=== PATIENT | female | born 1930 | race Caucasian/White ===

== ENCOUNTER 2017-04-13 23:43 | Inpatient (IN) | payer MEDICARE ==
[2017-04-14 01:02] LABS: #Eosinphils 0.1 thou/uL (0.0-0.7); #Lymphocytes 0.7 thou/uL (1.20-3.40); #Monocytes 1.3 thou/uL (0.11-0.59); #Neutrophils 10.5 thou/uL (1.40-6.50); %Basophils 0.1 % (0.0-1.0); %Eosinophils 0.5 % (0.0-10.0); %Lymphocytes 5.8 % (21.0-51.0); Hematocrit 32.6 % (36.0-47.0); Mean Platelet Volume 6.9 fL (7.4-10.4); Red Blood Cell (RBC) Count 3.16 mill/uL (4.20-5.40); White Blood Cell (WBC) Count 12.5 thou/uL (4.8-10.8)
[2017-04-14 01:19] LABS: Anion Gap 16 mmol/L (10-20); BUN (Urea Nitrogen) 59 mg/dL (9.8-20.1); Calc. Creatinine Clearance 0 mL/min (70-130); Calcium 8.5 mg/dL (7.8-10.44); Carbon Dioxide 12 mmol/L (23-31); Chloride 109 mmol/L (98-107); Estimated GFR-MDRD 15
[2017-04-14] MEDS ORDERED: MD-Gastroview 120 ML BOT ONE (01:30)
[2017-04-14] MEDS ORDERED: Ondansetron HCl/PF 4 MG/2 ML Vial IVP PRN (01:52)
--- NOTE | 2017-04-14 01:52 | PDOC.EVN ---
Event Note - Event Note Event Note: [id number] 1. Abdominal pain 2. Acidosis + ckd STAGE 3-4 3. Anemia plan: see orders
[2017-04-14] MEDS ORDERED: Sodium Bicarbonate 150 MEQ in Dextrose 5% in Water 1,000 ML IV SCH ×2 (02:00)
[2017-04-14 03:49] LABS: Band 17 % (5-11); Hematocrit 32.2 % (36.0-47.0); Mean Platelet Volume 6.6 fL (7.4-10.4); Neutrophil 73 % (42-75); Red Blood Cell (RBC) Count 3.12 mill/uL (4.20-5.40); White Blood Cell (WBC) Count 14.5 thou/uL (4.8-10.8)
[2017-04-14 04:00] LABS: Anion Gap 15 mmol/L (10-20); BUN (Urea Nitrogen) 58 mg/dL (9.8-20.1); Calc. Creatinine Clearance 0 mL/min (70-130); Calcium 8.7 mg/dL (7.8-10.44); Carbon Dioxide 13 mmol/L (23-31); Chloride 108 mmol/L (98-107); Estimated GFR-MDRD 14
--- NOTE | 2017-04-14 04:32 | HP ---
DATE OF ADMISSION: 04/14/2017 CHIEF COMPLAINT: Abdominal pain. HISTORY OF PRESENT ILLNESS: The patient is an 86-year-old female with past medical history of colon mass; lupus; chronic kidney disease, stage 3-4; anemia and hypertension; now came to the hospital [facility] of the abdominal pain. The patient started having abdominal pain 3 days back. Abdominal peyton n is all over the abdomen, constant and associated with nausea also, denies any vomiting. Pain pers isted, so she went to the PCP who recommended to come to the ER. The patient denies any chest pain, denies any trouble breathing, denies any dizziness, denies lightheadedness. Positive for bowel mov ements. The patient has colostomy. She said she did have bowel movement in the colostomy bag. Den ies any fever, denies any chills. Abdominal pain is all over the abdomen, constant, achy kind of pa in, moderate in intensity, relief with pain medication. No aggravating factors. PAST MEDICAL HISTORY: As per HPI. PAST SURGICAL HISTORY: Pacemaker, appendectomy, hysterectomy, right hemicolectomy. SOCIAL HISTORY: Denies smoking, denies alcohol, denies any drugs. FAMILY HISTORY: Positive for heart problems. MEDICATIONS: Reviewed. REVIEW OF SYSTEMS: Constitutional: Denies any fever, denies any chills. Eyes: Denies any vision problems. Ears: Denies any hearing loss. Neck: Denies any neck pain. Cardiovascular system: De nies any chest pain, denies palpitations. Respiratory system: Denies any cough, denies any sputum production. Gastrointestinal: Positive for abdominal pain. Genitourinary: Denies any dysuria. I ntegumentary: Denies any rash. Musculoskeletal: Denies any joint deformities. Cranial nervous sy stem: Denies syncope, denies lightheadedness. Psychiatric: Denies depression or anxiety. All oth er review of systems are reviewed and are negative. PHYSICAL EXAMINATION: CONSTITUTIONAL/VITAL SIGNS: At the time of H\T\P performed, blood pressure is 120/70, afebrile, res piratory rate 18, pulse ox 97%. GENERAL APPEARANCE: The patient appears comfortable. HEENT: Pupils are equal, round, and reactive to light. Anterior nares patent. Nose normal. Ears normal. Teeth intact. Tongue is moist. NECK: Supple. No JVD. CARDIOVASCULAR: S1, S2 present. Regular rate and rhythm, no murmurs, no rubs, no gallops. RESPIRATORY SYSTEM: No wheezing, no rhonchi. Breath sounds bilaterally. GASTROINTESTINAL: Abdomen, old healed scar present. Positive for colostomy bag. Nontender to palp ate. Positive for bowel sounds. No guarding. MUSCULOSKELETAL: No edema. CRANIAL NERVE SYSTEM: Awake, follows commands. Speech is clear. PSYCHIATRIC: Mood is appropriate at this time. LABORATORY DATA: At the time of H\T\P performed, sodium 132, potassium 4.6, chloride 109, CO2 of 12 , BUN 59, creatinine 3. CBC showed white count 12.5, hemoglobin 7.4, platelet count is 328. CT abd omen done in the outside ER showed interval development of marked distention and wall thickening and inflammatory changes seen in left transverse colon. ASSESSMENT AND PLAN: The patient is an 86-year-old female. 1. Abdominal pain plus positive small-bowel obstruction/colon obstruction. Plan to consult General Surgery to evaluate the patient and also plan to consult GI to evaluate the patient. Plan to keep patient n.p.o. Plan to start patient on IV antibiotics and plan to start patient on IV fluids also. 2. Chronic kidney disease, stage 3-4 plus metabolic acidosis. We will start the patient on bicarbo katie drip. We will check serial lactate levels. We will consult Nephrology to evaluate the patient also. We will monitor the patient closely. 3. Pain, p.r.n. pain meds. Monitor respiratory status. 4. History of lupus, stable at this time. 5. Anemia. Hemoglobin is stable. Continue current treatment. Repeat CBC with diff in a.m. The case was discussed in detail with the patient. Patient is FULL CODE.
[2017-04-14] MEDS: metroNIDAZOLE 500 MG in Premix Bag 1 BAG IVPB SCH ×3 (05:16→22:43)
[2017-04-14] MEDS: Famotidine/PF 20 mg/2ml Vial SLOW IVP SCH (08:24)
[2017-04-14] MEDS: Heparin 5,000 UNITS/ML VIAL SC SCH ×3 (08:24→20:54)
[2017-04-14] MEDS ORDERED: Famotidine/PF 20 mg/2ml Vial SLOW IVP SCH (09:00)
[2017-04-14] MEDS ORDERED: Ciprofloxacin Lactate/D5W 200 MG in Premix Bag 1 BAG IVPB SCH (09:00)
--- NOTE | 2017-04-14 12:28 | PDOC.EVN ---
Event Note - Event Note Event Note: Chart reviewed. Pt seen. Denies abdo pain or nausea. Will follow.
--- NOTE | 2017-04-14 17:25 | RAD ---
SMALL BOWEL STUDY 04/14/17 INDICATION: Dilated stool filled small bowel on CT from [place]. COMPARISON: None. FINDINGS: The bowel gas pattern is nonobstructed. Subsequent images obtained after gastrografin administration PO demonstrates migration of gastrografin contrast through the small bowel to a right lower quadran t ileostomy by two hours. No small bowel obstruction is evident. There is scattered degenerative and osteoarthritic change. There is scattered vascular calcifications. There is diffuse osteopenia. IMPRESSION: 1. No small bowel obstruction demonstrated. 2. Contrast migration through the small bowel to the level of the right lower quadrant ostomy b y two hours. POS: UTE
--- NOTE | 2017-04-14 18:14 | PDOC.EVN ---
Event Note - Event Note Event Note: Pt had contrast for gastrografin study, then vomited. Developed rapid heart rate. Vital signs reviewed. maintaining good blood pressure, but tachycardic. S1, S2, tachy, rebgular. Lungs CTA. Tele monitor: vish mayes/esther. CXR: no infiltrates Starting antibiotics for possible aspiration. Consulting cardiology re: vish mayes/estehr. Monitor on telemetry.
--- NOTE | 2017-04-14 18:26 | RAD ---
AP VIEW OF THE CHEST: 04/14/17 INDICATION: Atrial flutter. COMPARISON: Prior exam dated 12/31/08. FINDINGS: There is mild left basilar atelectasis. There is suggestion of small left pleural effusion. There is mild pulmonary vascular congestion. No pneumothorax is evident. There is enteric contrast within th e stomach. There is diffuse osteopenia. IMPRESSION: Findings suggesting mild CHF. Continued followup is recommended. POS: JUANI
--- NOTE | 2017-04-14 19:32 | CON ---
DATE OF CONSULTATION: 04/14/2017 CHIEF COMPLAINT: Abdominal pain. HISTORY OF PRESENT ILLNESS: Ms. Oliveira is an 86-year-old woman who had gradual onset of sharp left low er quadrant abdominal pain, starting Sunday, which was 3 days ago. The pain is worse when she mo ves, gets up, or presses on her abdomen. Her pain has progressed that she went on to the emergency room in [place]. A CT scan was performed that showed inflammatory changes in the colon versus small bowel with some bowel distention and she was transferred here for further care. She has had no nasreen sea or vomiting. She has had stool output into her ileostomy and air. 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 She has a long Obed's pouch. She has had no blood in the stool. She has lost 15 pounds over the last several months. She has been able to eat over these last few days and keep her food down. PAST MEDICAL HISTORY: She was admitted to the hospital in [place] recently with urinary tract infec tion; acute renal failure, she was considered for hemodialysis at that point; lupus; hypertension. PAST SURGICAL HISTORY: Appendectomy, hysterectomy, right hemicolectomy, pacemaker placement. FAMILY HISTORY: Positive for colon cancer in her father at age 52. SOCIAL HISTORY: She quit smoking years ago. She quit alcohol years ago as well, but only drinks so cially prior to that. No drugs. ALLERGIES: TRAZODONE. HOME MEDICATIONS: Tylenol, amlodipine, lisinopril, omeprazole. REVIEW OF SYSTEMS: Negative x10 systems reviewed except as stated in the history of present illness . CURRENT INPATIENT MEDICATIONS: Ciprofloxacin, famotidine, subcutaneous heparin, metronidazole. PHYSICAL EXAMINATION: VITAL SIGNS: Temperature 97.7, pulse 89, blood pressure 132/61, oxygen saturation is 93% on 2 liter s. GENERAL: She is in no acute distress. She is awake and alert. HEENT: Eyes have no scleral icterus. Oropharynx is clear, without lesions. NECK: No cervical or supraclavicular lymphadenopathy. LUNGS: Clear to auscultation bilaterally. HEART: Regular rate and rhythm without murmur. ABDOMEN: Soft and nontender in the right abdomen and right upper quadrant. She has tenderness with voluntary guarding in the left lower quadrant to left upper quadrant. Bowel sounds are present. S he does have a small amount of stool in her ileostomy bag. EXTREMITIES: No lower extremities edema. LABORATORY DATA: Creatinine 3.07 with a BUN of 58. White blood cell count 14.5, hemoglobin 10.3, p latelets 318. IMPRESSION: 1. Left lower quadrant abdominal pain. CT scan showing possible inflammatory changes around the tr ansverse part of the colon of the Mckinney's pouch. Possibly this is actually small bowel with some retained stool and dilation of the bowel above that. She could have ischemic colitis of the Mckinney 's pouch. Diverticulitis in this area is possible. Given the 15 pound weight loss and the family h istory of colon cancer, a colon mass is possible. 2. Chronic renal disease. 3. Weight loss. 4. Overall, poor functional status. She is quite frail. RECOMMENDATIONS: 1. Antibiotics with ciprofloxacin and metronidazole. 2. Discuss with Dr. Horton. PLAN: 1. Small bowel follow through to evaluate if this is more of a distal small bowel process with sarah ined stool and bowel dilation. This may have a therapeutic effect as well to clear if there is an i mpacted stool in the lower and in the ileum. 2. The small bowel follow through is negative, then consideration for colonoscopy would be given to evaluate for ischemic colitis or neoplastic process.
--- NOTE | 2017-04-14 19:43 | CON ---
DATE OF CONSULTATION: 04/14/2017 REASON FOR CONSULTATION: Atrial fibrillation, rapid ventricular response. HISTORY OF PRESENT ILLNESS: Ms. Oliveira is a very pleasant 86-year-old white female who comes to the [facility] for abdominal pain. She is being currently worked up for small-bowel obstruction and she was downstairs getting a small bowel follow through and she had an episode of a bout of vomiting and so on after that she developed a heart rate in the 150s. Telemetry would suggest either atrial fibrill ation or flutter. EKG suggest more atrial fibrillation. So Cardiology is being consulted for this. She has a pacemaker in place. This was originally placed by Dr. 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 She eventually has had it replaced in June of last year. Currently, Ms. Oliveira denies any chest pain, tightness, pressure. Her breathing is at baseline. Denie s any other issues. PAST MEDICAL HISTORY: 1. Hypertension. 2. History of an [place] in the past. 3. Lupus. 4. Mitral valve prolapse. PAST SURGICAL HISTORY: 1. Cardiac arrest status post pacemaker placement as above. 2. Bowel resection with ileostomy in the past. PAST SURGICAL HISTORY: 1. Appendectomy 2. Hysterectomy. 3. Bilateral carpal tunnel release. 4. L3-L2 hemilaminectomy. 5. Laser eye surgery. 6. Bowel resection with ileostomy. 7. Pacemaker insertion as well. ALLERGIES: SULFA DRUGS and TRAZODONE. OUTPATIENT MEDICATIONS: Include, 1. Cozaar 25 mg a day. 2. Coreg 25 mg b.i.d. 3. Amlodipine 10 mg a day. FAMILY HISTORY: Father of colon cancer. Mother of a cerebral aneurysm. Three sister wit h breast cancer and hypertension. SOCIAL HISTORY: Former smoker. No alcohol or drug use. REVIEW OF SYSTEMS: Twelve point review of systems was done and is all negative unless stated in the history of present illness. PHYSICAL EXAMINATION: VITAL SIGNS: Temperature 98.2, pulse 130, respiratory rate 18, satting 91% on 2 L, blood pressure 1 31/61. GENERAL: Awake, alert, is oriented x3, in no distress. HEENT: Normocephalic, atraumatic. NECK: Supple. LUNGS: Reduced breath sounds. CARDIOVASCULAR: S1, S2. Heart rate in the 150s right now, mildly irregular. ABDOMEN: Diminished bowel sounds. EXTREMITIES: No edema. SKIN: Warm and dry. LABORATORY WORK: Reviewed. White count of 14, hemoglobin of 10, hematocrit 32, platelet count 318, 000. Chemistries were also reviewed. Creatinine is high at 3. Normal potassium. EKGs were reviewed, AFib, RVR. Chest x-ray was reviewed and mild CHF. Small bowel x-ray was reviewed. ASSESSMENT AND PLAN: 1. Atrial fibrillation with rapid ventricular response: We will start her on an amiodarone drip to try to slower down some. Not a candidate for any anticoagulation currently given her small-bowel o bstruction and the possibility of needing surgical intervention emergently. We will start an aspiri n for stroke prophylaxis. This may as well have been related to her episode of emesis where just a vagal pressure placed on the heart can trigger episodes of atrial fibrillation. Hopefully, she will come out of it overnight. 2. We will plan on interrogating pacemaker to see if she has had other episodes of atrial fibrillat ion. If so, she may have paroxysmal atrial fibrillation. If this is the first episode, she may not need long-term anticoagulation. Thank you for letting us to participate in the care of your patient. We will follow.
[2017-04-14 19:55] LABS: ALT (SGPT) 10 U/L (8-55); AST (SGOT) 15 U/L (5-34); Alkaline Phosphatase 102 U/L (40-150); Bilirubin, Direct 0.3 mg/dL (0.1-0.3); Bilirubin, Total 0.7 mg/dL (0.2-1.2); Magnesium 1.2 mg/dL (1.6-2.6); Protein, Total 7.6 g/dL (6.0-8.3)
[2017-04-14] MEDS: Amiodarone HCl 450 MG in Dextrose 5% in Water 250 ML IVPB SCH ×2 (20:34)
[2017-04-14] MEDS: cefTRIAXone\\ROCEPHIN 1 GM in Sodium Chloride 0.9% 100 ML IVPB SCH (20:45)
--- NOTE | 2017-04-15 01:19 | CON ---
DATE OF SERVICE: 04/14/2017 CHIEF COMPLAINT: Abdominal pain. HISTORY OF PRESENT ILLNESS: This is an 86-year-old female who I previously performed a right colect mariaa on previously for unknown reason. The old medical records are not available back in 2008. She did, however, undergo right colectomy with long Obed's and ileostomy by me. She has not had a c olonoscopy since she notes left-sided abdominal pain that brought her to [facility] last night. CT scan there showed evidence of colon or intestinal obstruction. She was adm itted to [facility] the pain persisted. She denies nausea, vomiting. She states she has had stool in her bag as normal Denies previous obstruction. She has not had a colonoscopy through her long H artmann's since that event several years ago. PAST MEDICAL HISTORY: Includes chronic renal failure, lupus, hypertension. PAST SURGICAL HISTORY: As above. SOCIAL HISTORY: No smoking, alcohol or other drugs. REVIEW OF SYSTEMS: Ten-system review of systems otherwise negative. PHYSICAL EXAMINATION: VITAL SIGNS: Pulse 89, respirations 16, temperature 97.7, 132/61 is her blood pressure. LUNGS: Clear. HEART: Regular rate and rhythm. ABDOMEN: Soft, it is tender in the left abdomen, mostly left upper quadrant with localized guarding without rebound. Well-healed midline incision without hernia. I see the mucosa in the right lower quadrant is pink. There is air and stool in the bag. LABORATORY DATA: White cell count is 14, hemoglobin 10, platelet count is 318. Sodium 131, potassi um 4.7, creatinine is 3.07, potassium 4.7. Gastrografin small bowel follow through today shows no o bvious obstruction of her small intestine, all the way to her right lower quadrant ostomy. ASSESSMENT: Left-sided abdominal pain, history of long Obed's now with evidence of retained sto ol or debris in this long Obed's pouch. The Gastrografin small bowel follow through shows no ob struction, in fact this area of dilated intestine or colon seen on CT does not correspond to anythin g in her small bowel, likely it is in her long Obed's pouch. PLAN: The next step would be colonoscopy to rule out significant retained fecal material or maligna ncy mass stricture in her retained colon. We will discuss with Dr. Sanford.
[2017-04-15 05:51] LABS: #Eosinphils 0.1 thou/uL (0.0-0.7); #Lymphocytes 0.9 thou/uL (1.20-3.40); #Monocytes 1.2 thou/uL (0.11-0.59); #Neutrophils 10.9 thou/uL (1.40-6.50); %Basophils 0.1 % (0.0-1.0); %Eosinophils 1.1 % (0.0-10.0); %Lymphocytes 6.7 % (21.0-51.0); %Monocytes 9.1 % (0.0-10.0); Hematocrit 31.9 % (36.0-47.0); Mean Platelet Volume 7.1 fL (7.4-10.4); Red Blood Cell (RBC) Count 3.12 mill/uL (4.20-5.40); White Blood Cell (WBC) Count 13.2 thou/uL (4.8-10.8)
[2017-04-15] MEDS: Amiodarone HCl 450 MG in Dextrose 5% in Water 250 ML IVPB SCH ×4 (05:53→23:00)
[2017-04-15] MEDS ORDERED: Fleet Enema 133 ML BOT PR SCH (06:00)
[2017-04-15 06:06] LABS: Anion Gap 15 mmol/L (10-20); BUN (Urea Nitrogen) 52 mg/dL (9.8-20.1); Calc. Creatinine Clearance 10 mL/min (70-130); Calcium 8.6 mg/dL (7.8-10.44); Carbon Dioxide 20 mmol/L (23-31); Chloride 104 mmol/L (98-107); Estimated GFR-MDRD 14
[2017-04-15] MEDS: metroNIDAZOLE 500 MG in Premix Bag 1 BAG IVPB SCH ×2 (06:06→14:47)
--- NOTE | 2017-04-15 10:01 | PDOC.PN ---
- Subjective Encounter Start Date: 04/15/17 Encounter Start Time: 07:40 Pt seen for followup re: abdominal pain. Continues to have LLQ pain. Denies nausea or vomiting. - Objective MAR Reviewed: Yes Vital Signs & Weight: Vital Signs (12 hours) Temp Pulse Resp BP Pulse Ox 04/15/17 04:17 98.0 F 78 16 126/58 L 92 L 04/14/17 23:30 98.0 F 83 16 134/60 92 L Weight Admit Weight 107 lb Weight 107 lb I&O: 04/14/17 04/15/17 04/16/17 06:59 06:59 06:59 Intake Total 100 2080 Output Total 3300 Balance 100 -1220 Result Diagrams: 04/15/17 05:07 04/15/17 05:07 EKG Reviewed by me: Yes (Tele: NSR) Phys Exam - Physical Examination Constitutional: NAD HEENT: moist MMs, oral pharynx no lesions Neck: supple Respiratory: no wheezing, no rales, no rhonchi, clear to auscultation bilateral Cardiovascular: RRR, no rub Gastrointestinal: soft, no distention, positive bowel sounds LLQ tenderness+; no guarding or rigidity; ostomy+ Musculoskeletal: pulses present Neurological: moves all 4 limbs Psychiatric: normal affect, A&O x 3 Skin: no rash, cap refill <2 seconds Dx/Plan (1) Abdominal pain Code(s): R10.9 - UNSPECIFIED ABDOMINAL PAIN Status: Acute (2) Afib Code(s): I48.91 - UNSPECIFIED ATRIAL FIBRILLATION Status: Acute (3) Hypokalemia Code(s): E87.6 - HYPOKALEMIA Status: Acute (4) Lupus Code(s): L93.0 - DISCOID LUPUS ERYTHEMATOSUS Status: Chronic (5) CKD (chronic kidney disease) Code(s): N18.9 - CHRONIC KIDNEY DISEASE, UNSPECIFIED Status: Chronic - Plan continue antibiotics * . Pt awaiting colonoscopy. Consult nephrology re; CKD. Cr worse today. Replace potassium. Pt converted to sinus rhythm. Review of Systems - Review of Systems Constitutional: negative: Fever, Chills, Sweats, Weakness, Malaise Respiratory: negative: Cough, Dry, Shortness of Breath, Hemoptysis, SOB with Excertion, Pleuritic Pain, Sputum, Wheezing Cardiovascular: negative: Chest Pain, Palpitations, Orthopnea, Paroxysmal Noc. Dyspnea, Edema, Light Headedness Gastrointestinal: Abdominal Pain. negative: Nausea, Vomiting, Diarrhea, Constipation, Melena, Hematochezia Genitourinary: negative: Dysuria, Frequency, Incontinence, Hematuria, Retention - Medications/Allergies Allergies/Adverse Reactions: Allergies Allergy/AdvReac Type Severity Reaction Status Date / Time trazodone Allergy Mild Verified 04/14/17 04:17 Medications: Current Medications Famotidine (Pepcid) 20 mg SLOW IVP Q24HR [facility] Last Admin: 04/14/17 08:24 Dose: 20 mg Heparin Sodium (Porcine) (Heparin) 5,000 units SC TID BRIANA Last Admin: 04/14/17 20:54 Dose: 5,000 units Metronidazole 500 mg/ Device 100 mls @ 100 mls/hr IVPB Q8HR [facility] Last Admin: 04/15/17 06:06 Dose: 100 mls Ceftriaxone Sodium 1 gm/ (Sodium Chloride) 100 mls @ 200 mls/hr IVPB Q24HR [facility] Last Admin: 04/14/17 20:45 Dose: 100 mls Amiodarone HCl 450 mg/ (Dextrose/Water) 259 mls @ 0 mls/hr IVPB INF BRIANA; Per Protocol PRN Reason: Protocol Last Admin: 04/15/17 05:53 Dose: 259 mls Ondansetron HCl (Zofran) 4 mg IVP Q6H PRN PRN Reason: Nausea/Vomiting Last Admin: 04/14/17 15:18 Dose: 4 mg Sodium Chloride (Flush - Normal Saline) 10 ml IVF Q12HR BRIANA Last Admin: 04/14/17 20:32 Dose: 10 ml Sodium Chloride (Flush - Normal Saline) 10 ml IVF PRN PRN PRN Reason: Saline Flush
[2017-04-15] MEDS: Heparin 5,000 UNITS/ML VIAL SC SCH ×3 (10:53→21:32)
[2017-04-15] MEDS: Famotidine/PF 20 mg/2ml Vial SLOW IVP SCH (10:54)
[2017-04-15] MEDS ORDERED: Potassium Chloride 40 MEQ in Sodium Chloride 0.9% 500 ML IVPB SCH (11:00)
[2017-04-15] MEDS ORDERED: Ondansetron HCl/PF 4 MG/2 ML Vial IVP PRN (13:16)
[2017-04-15] MEDS ORDERED: Promethazine HCl 25 MG/ML VIAL IM PRN (13:16)
[2017-04-15] MEDS ORDERED: Promethazine HCl 25 MG/ML VIAL SLOW IVP PRN (13:16)
--- NOTE | 2017-04-15 16:25 | PDOC.CTH ---
Cardiology Progress Note - Subjective She is doing better. Denies chest pain, tightness, pressure, SOB . - Objective Vital Signs Temp Pulse Resp 04/15/17 08:00 98.0 F 78 16 Admit Weight 107 lb Weight 107 lb 04/14/17 04/15/17 04/16/17 06:59 06:59 06:59 Intake Total 100 2080 Output Total 3300 Balance 100 -1220 - Physical Examination General/Neuro: alert & oriented x3, NAD Neck: carotid US brisk Lungs: unlabored respirations Heart: RRR Abdomen: NT/ND Extremities: other: (no edema.) - Telemetry Telemetry Rhythm: Afib-->NSR - Labs Result Diagrams: 04/15/17 05:07 04/15/17 05:07 - Assessment/Plan 1. Afib rvr, back in sinus, paroxysmal 2. Small bowel obstruction PLAN: - Continue amiodarone IV until she tolerates PO to transition to a PO load. - No anticoagulation at this time due to bowell issues. - PPM interrogation shows she has had 175 different atrial episodes since Jun 2016, afib, this is not an isolated event due to abdominal distention but just a ruin of her paroxysmal afib.
--- NOTE | 2017-04-15 18:58 | CON ---
DATE OF CONSULTATION: 04/15/2017 CONSULTING PHYSICIAN: Dr. Chen. REASON FOR CONSULTATION: Acute kidney injury. REASON FOR ADMISSION: Abdominal pain. HISTORY OF PRESENT ILLNESS: This is an 86-year-old female with past medical history of chronic kidn ey disease and anemia, lupus, came to the hospital with abdominal pain. She has not followed up. S he has CKD stage 4 and with no followup with Nephrology. No fever or chills, no chest pain or palpi tation, dizziness or lightheadedness. No skin rash reported. No history of trauma. PAST MEDICAL HISTORY: Positive for chronic kidney disease, lupus, colon mass, anemia, and hypertens ion. ALLERGIES: TRAZODONE. SOCIAL HISTORY: No smoking, alcohol or illicit drug abuse. FAMILY HISTORY: Positive for heart disease. REVIEW OF SYSTEMS: The following complete review of systems was negative, unless otherwise mentione d in the HPI or below: Constitutional: Weight loss or gain, ability to conduct usual activities. Skin: Rash, itching. Eyes: Double vision, pain. ENT/Mouth: Nose bleeding, neck stiffness, pain, tenderness. Cardiovascular: Palpitations, dyspnea on exertion, orthopnea. Respiratory: Shortness of breath, wheezing, cough, hemoptysis, fever or night sweats. Gastrointestinal: Poor appetite, abdominal pain, heartburn, nausea, vomiting, constipation, or diar murphy. Genitourinary: Urgency, frequency, dysuria, nocturia. Musculoskeletal: Pain, swelling. Neurologic/Psychiatric: Anxiety, depression. Allergy/Immunologic: Skin rash, bleeding tendency. PHYSICAL EXAMINATION: GENERAL: This is a well-built elderly female in no apparent distress. VITAL SIGNS: Temperature 97, pulse 89, respirations 18, blood pressure 134/60. HEENT: Atraumatic, normocephalic. Oral mucosa is moist. NECK: Supple. CARDIOVASCULAR: S1, S2 heard. Rate and rhythm regular. RESPIRATORY: Clear. ABDOMEN: Soft. MUSCULOSKELETAL: No tenderness. No edema. DERMATOLOGIC: No skin rash. NEUROLOGIC: Alert, awake. PSYCHIATRIC: Mood and affect normal. LABORATORY DATA: Potassium is 3.4, BUN 52, creatinine 3.2. ASSESSMENT AND PLAN: 1. Acute kidney injury on chronic kidney disease stage 4. Renal function close to her baseline. A gree with supportive care for now, continue antibiotics and we will follow. 2. Hyperkalemia, most likely from bicarbonate drip. 3. Acidosis much better with bicarbonate drip, hold bicarbonate drip and monitor. 4. Anemia, chronic, most likely from chronic disease. 5. Leukocytosis, stable. 6. Edema, controlled. 7. Hypertension. Titrate medications. Blood pressure seems to be stable. 8. We will continue to follow. 9. Lupus. We will check urine studies to check for proteinuria. We will continue to follow. Thank you for the consult.
--- NOTE | 2017-04-15 19:07 | OP ---
DATE OF PROCEDURE: 04/15/2017 PROCEDURE: Flexible sigmoidoscopy with biopsy and ileoscopy through the ileostomy. PROCEDURE IN DETAIL: Informed consent was obtained from the patient and family. She was sedated wi th total intravenous anesthesia. Ileoscopy through the ileostomy site revealed normal mucosa severa l centimeters inside. Rectal exam revealed solid stool in the rectal vault. Disimpaction of a larg e amount of soft stool was performed. The rectum was cleared. The rectum on insertion of the endos cope showed a circumferential erythema and friability and superficial ulceration. Biopsies were obt ained. There was stricture at the proximal rectum to the distal sigmoid. The diagnostic endoscope was then used to pass through the lower stricture; however, into the distal sigmoid, a very tight st ricture only at around 3 mm in diameter was encountered. The scope could not pass through this. Th ere was a single diverticulum in the distal sigmoid noted. IMPRESSION: 1. Normal ileum mucosa by ileoscopy. 2. Circumferential erythema and superficial ulceration and friability of the rectum and distal sigm oid consistent with diversion colitis. Inflammatory bowel disease is possible. Biopsies were obtai allison. 3. Sigmoid diverticulosis. 4. 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 This was only 2-3 mm in diameter. The colon has marked distention and stool retention above the stricture on review o f the CT scan. She likely has significant constipation above the stricture leading to the presentat ion. She can still have ischemic colitis secondary to this or active inflammation from an inflammat ory bowel, which is less likely. Neoplastic process is possible. Father had colon cancer. RECOMMENDATIONS: 1. Await histopathology. 2. Antibiotics. 3. Options including continued conservative management with IV fluids and antibiotics. Surgical ma nagement could be considered. We will discuss this with Dr. Horton. Other options would include b alloon dilation of the distal sigmoid stricture and enemas; however, I think this would be high risk and unlikely to be very productive. There is active inflammation around the stricture and certainl y there be high risk for perforation. The stricture would likely just tightened back up and even th en it is unlikely that an adequate amount of stool could be washed through that stricture even after dilation.
[2017-04-15] MEDS: cefTRIAXone\\ROCEPHIN 1 GM in Sodium Chloride 0.9% 100 ML IVPB SCH (23:31)
[2017-04-16] MEDS: metroNIDAZOLE 500 MG in Premix Bag 1 BAG IVPB SCH ×4 (00:57→21:16)
[2017-04-16 05:55] LABS: Anion Gap 20 mmol/L (10-20); BUN (Urea Nitrogen) 47 mg/dL (9.8-20.1); Calc. Creatinine Clearance 10 mL/min (70-130); Calcium 7.7 mg/dL (7.8-10.44); Carbon Dioxide 13 mmol/L (23-31); Chloride 106 mmol/L (98-107); Estimated GFR-MDRD 14
[2017-04-16 06:01] LABS: Band 28 % (5-11); Hematocrit 34.8 % (36.0-47.0); Mean Platelet Volume 6.7 fL (7.4-10.4); Neutrophil 56 % (42-75); Red Blood Cell (RBC) Count 3.34 mill/uL (4.20-5.40); White Blood Cell (WBC) Count 14.8 thou/uL (4.8-10.8)
[2017-04-16] MEDS: Famotidine/PF 20 mg/2ml Vial SLOW IVP SCH (08:42)
[2017-04-16] MEDS: Heparin 5,000 UNITS/ML VIAL SC SCH ×3 (08:43→20:29)
--- NOTE | 2017-04-16 10:17 | PDOC.PN ---
- Subjective Encounter Start Date: 04/16/17 Encounter Start Time: 07:40 Pt seen for followup re: abdominal pain. Denies chest pain, shortness of breath , fevers or chills. No nausea or vomiting. Abdo pain better. - Objective Resuscitation Status: Resuscitation Status DNR:Do Not Resuscitate MAR Reviewed: Yes Vital Signs & Weight: Vital Signs (12 hours) Temp Pulse Resp BP Pulse Ox 04/16/17 08:05 98.3 F 103 H 20 121/62 92 L 04/16/17 07:40 99.1 F 86 20 93 L 04/16/17 03:35 99.1 F 86 20 135/64 93 L 04/15/17 23:26 98.7 F 84 24 H 131/60 93 L Weight Admit Weight 107 lb Weight 107 lb I&O: 04/15/17 04/16/17 04/17/17 06:59 06:59 06:59 Intake Total 2080 1072 Output Total 3300 1 1 Balance -1220 1071 -1 Result Diagrams: 04/16/17 04:54 04/16/17 04:54 EKG Reviewed by me: Yes (Tele: vish santana) Phys Exam - Physical Examination Appears frail HEENT: moist MMs, oral pharynx no lesions Neck: supple Respiratory: no wheezing, no rales, no rhonchi, clear to auscultation bilateral Cardiovascular: no rub, irregular Gastrointestinal: soft, positive bowel sounds Musculoskeletal: pulses present Neurological: non-focal, moves all 4 limbs Psychiatric: normal affect, A&O x 3 Skin: no rash, normal turgor, cap refill <2 seconds Dx/Plan (1) Abdominal pain Code(s): R10.9 - UNSPECIFIED ABDOMINAL PAIN Status: Acute (2) Afib Code(s): I48.91 - UNSPECIFIED ATRIAL FIBRILLATION Status: Acute (3) Protein calorie malnutrition Code(s): E46 - UNSPECIFIED PROTEIN-CALORIE MALNUTRITION Status: Chronic (4) Lupus Code(s): L93.0 - DISCOID LUPUS ERYTHEMATOSUS Status: Chronic (5) CKD (chronic kidney disease) Code(s): N18.9 - CHRONIC KIDNEY DISEASE, UNSPECIFIED Status: Chronic (6) Hypokalemia Code(s): E87.6 - HYPOKALEMIA Status: Resolved - Plan continue antibiotics, DVT proph w/heparin * . Noted result of endoscopic study, await further input from GI/surgical services. Continue amiodarone drip. Consult dietitian. d/w nephrology service, CKD stable, they will followup as outpatient. Review of Systems - Review of Systems Constitutional: negative: Fever, Chills, Sweats, Weakness Respiratory: negative: Cough, Dry, Shortness of Breath, Hemoptysis, SOB with Excertion, Pleuritic Pain, Sputum, Wheezing Cardiovascular: negative: Chest Pain, Palpitations, Orthopnea, Paroxysmal Noc. Dyspnea, Light Headedness Gastrointestinal: Abdominal Pain. negative: Nausea, Vomiting, Diarrhea, Constipation Genitourinary: negative: Dysuria, Frequency, Incontinence, Hematuria, Retention - Medications/Allergies Allergies/Adverse Reactions: Allergies Allergy/AdvReac Type Severity Reaction Status Date / Time trazodone Allergy Mild Verified 04/14/17 04:17 Medications: Current Medications Famotidine (Pepcid) 20 mg SLOW IVP Q24HR [facility] Last Admin: 04/16/17 08:42 Dose: 20 mg Heparin Sodium (Porcine) (Heparin) 5,000 units SC TID [facility] Last Admin: 04/16/17 08:43 Dose: 5,000 units Metronidazole 500 mg/ Device 100 mls @ 100 mls/hr IVPB Q8HR [facility] Last Admin: 04/16/17 06:00 Dose: 100 mls Ceftriaxone Sodium 1 gm/ (Sodium Chloride) 100 mls @ 200 mls/hr IVPB Q24HR [facility] Last Admin: 04/15/17 23:31 Dose: 100 mls Amiodarone HCl 450 mg/ (Dextrose/Water) 259 mls @ 0 mls/hr IVPB INF [facility]; Per Protocol PRN Reason: Protocol Last Admin: 04/15/17 23:00 Dose: 259 mls Ondansetron HCl (Zofran) 4 mg IVP Q6H PRN PRN Reason: Nausea/Vomiting Last Admin: 04/14/17 15:18 Dose: 4 mg Sodium Chloride (Flush - Normal Saline) 10 ml IVF Q12HR [facility] Last Admin: 04/16/17 08:43 Dose: 10 ml Sodium Chloride (Flush - Normal Saline) 10 ml IVF PRN PRN PRN Reason: Saline Flush
--- NOTE | 2017-04-16 11:56 | PRG ---
DATE OF SERVICE: 04/16/2017 SUBJECTIVE: This 86-year-old female being seen for acute kidney injury. The patient denies any nasreen sea, vomiting or chest pain. PHYSICAL EXAMINATION: GENERAL: Patient is awake, alert. VITAL SIGNS: Afebrile, pulse 86, breathing at 16, blood pressure 121/62. OBJECTIVE: See above. Awake, alert, in no acute distress. GENERAL APPEARANCE AND MENTAL STATUS: Fair. HEAD/NECK: Normocephalic. Atraumatic. EYES: EOMI. No deformity. EARS: Clear. No ulcers. NOSE: Intact. No lesions. MOUTH: Clear. No discharge. THROAT: Clear. No exudate. LUNGS: Clear. No crackles. CARDIAC: S1, S2. No rub. ABDOMEN: Benign. BS+. GENITALIA/RECTUM: Varner absent. BACK/EXTREMITIES: Edema 0+ Ulcer- NEUROLOGICAL: Alert and motor intact. SKIN: Rash- Bruise- LYMPHATICS: Edema- Ulcer- LABORATORY: Creatinine 3.1, hemoglobin 10.8. ASSESSMENT AND RECOMMENDATIONS: 1. Stage 5 chronic kidney disease based on glomerular filtration rate. Renal function stable. 2. Hypertension, stable. 3. Anemia, stable. 4. Hyperkalemia, stable. No urgent indication for dialysis. We will follow the patient's renal function closely. The patient can follow up with Dr. Christie aft er discharge.
[2017-04-16] MEDS: Amiodarone HCl 450 MG in Dextrose 5% in Water 250 ML IVPB SCH ×2 (12:31)
--- NOTE | 2017-04-16 13:07 | PDOC.CTH ---
Cardiology Progress Note - Subjective She is doing well. She has not eaten today. - Objective Vital Signs Temp Pulse Resp BP Pulse Ox 04/16/17 12:00 98.1 F 119 H 20 121/60 95 04/16/17 08:05 98.3 F 103 H 20 121/62 92 L 04/16/17 07:40 99.1 F 86 20 93 L 04/16/17 03:35 99.1 F 86 20 135/64 93 L Admit Weight 107 lb Weight 107 lb 04/15/17 04/16/17 04/17/17 06:59 06:59 06:59 Intake Total 2080 1072 Output Total 3300 1 1 Balance -1220 1071 -1 - Physical Examination General/Neuro: alert & oriented x3, NAD Neck: no JVD present Lungs: unlabored respirations Heart: other: (Irregular) Abdomen: NT/ND Extremities: other: (no edema) - Telemetry Telemetry Rhythm: Afib - Labs Result Diagrams: 04/16/17 04:54 04/16/17 04:54 - Assessment/Plan 1. Paroxysmal Afib, rvr, 2. Small bowel obstruction 3. CKD stage 4 PLAN: - Continue amiodarone IV until she tolerates PO to transition to a PO load. - No anticoagulation at this time due to bowel issues. - She went back into afib this morning at 8am. Lenient rate control. HR in the 110's,
[2017-04-16] MEDS: Acetaminophen 325 MG TAB PO PRN (13:39)
--- NOTE | 2017-04-16 15:30 | PQF ---
Date: 04-16-17 ATTN: DR. MAGDALENA PANDYA Please alex a box (or boxes) below if a more specific term indicating a diagnosis and/or acuity level for this condition can be identified. Please exercise your independent, professional judgment in responding to the clarification form. Clinical indicators are provided on the bottom of this form for your review. Thank you. [ X ] Protein Calorie Malnutrition: [ X ] Mild [ ] Moderate [ ] Severe [ ] Unspecified [ ] Other Malnutrition (please specify) __ [ ] No diagnosis of Malnutrition [ ] Does not apply to this patient [ ] Unable to determine [ ] Other diagnosis: [ ] Present on Admission (POA); [ ] Yes [ ] No [ ] Unable to determine BMI Less than 19 Under weight 19 - 24.9 Healthy 25.0 - 29.9 Slightly Overweight 30.0 - 34.9 Obese 35.0 - 39.9 Severely Obese 40.0 and Over Morbidly Obese Values Commonly Used to Grade the Severity of Protein-Energy Malnutrition Measurement Normal Mild Moderate Severe Normal weight (%) 19414 8590 7585 < 75 Body mass index 1924 1818.9 1617.9 < 16 Serum albumin (g/dL) 3.55.0 3.13.4 2.43.0 < 2.4 Serum transferrin (mg/dL) 080546 972537 398074 < 150 Total lymphocyte count (per mm3) [id number] 800 1500 < 800 Delayed hypersensitivity index 2 2 1 0 From The Merck Manual of Diagnosis and Therapy, Edition 18, edited by Alex Horton. Copyright 2006 by [employer], [place]. Available at : http://www.merck.com/mmpe/sec01/ch002/rh041l.html. Accessed 02/06/07. The following CLINICAL INDICATORS - Signs / Symptoms are documented in the medical record: BMI: 17.[address] HIGGINS 04-14-17: SHE HAS LOST 15 POUNDS OVER THE LAST SEVERAL MONTHS. SHE HAS BEEN ABLE TO EAT OVER THESE PAST FEW DAYS AND KEEP HER FOOD DOWN. WEIGHT LOSS. POOR FUNCTIONAL STATUS, SHE IS QUITE FRAIL. PN DR. PANDYA 04-15-17: PROTEIN CALORIE MALNUTRITION NURSES NOTE 04-15-17: PRESSURE ULCER TO SACROCOCCYGEAL STAGE 1 RISKS: * CONSULT NOTE DR. HIGGINS 04-14-17: SHE HAS LOST 15 POUNDS OVER THE LAST SEVERAL MONTHS. SHE HAS BEEN ABLE TO EAT OVER THESE PAST FEW DAYS AND KEEP HER FOOD DOWN. WEIGHT LOSS. POOR FUNCTIONAL STATUS, SHE IS QUITE FRAIL. *H &P: HX OF COLON MASS, LUPUS, HTN TREATMENT: DIETARY CONSULT 04-16-17: PT TAKING 25-50% OF MEALS, LOW APPETITE , ORDERED SUPLENA TID (This form is maintained as a part of the permanent medical record) 2014 [employer]. All Rights Reserved [email or web address] Office: [phone] [email or web address]
[2017-04-16] MEDS: cefTRIAXone\\ROCEPHIN 1 GM in Sodium Chloride 0.9% 100 ML IVPB SCH (20:29)
--- NOTE | 2017-04-16 22:59 | PRG ---
DATE OF SERVICE: 04/16/2017 SUBJECTIVE: Ms. Oliveira has no acute complaints. She is tolerating a solid diet. Her pain is improved , but she still has left lower quadrant abdominal pain, persistent. OBJECTIVE: VITAL SIGNS: Temperature 97.9, pulse 87, blood pressure 143/66. GENERAL: She is in no acute distress. She is awake and alert. LUNGS: Clear to auscultation bilaterally. CARDIOVASCULAR: Heart has been intermittently tachycardic. S1, S2. ABDOMEN: Soft, tender in the left abdomen. Bowel sounds are present. EXTREMITIES: No lower extremity edema. LABORATORY DATA: White blood cell count 14.8, hemoglobin 10.8. Creatinine 3.16. IMPRESSION: 1. Left-sided abdominal pain with constipation and colonic distention proximal to a tight stricture in the distal sigmoid. She could have a secondary inflammatory process from the constipation or is chemia. She does seem to be showing improvement with antibiotics; however, she still is significant ly tender. 2. Atrial fibrillation with rapid ventricular rate. RECOMMENDATIONS: She has been evaluated by Dr. Horton. Consideration is being given for left-side d colectomy, however, she is very frail and weak with additional medical problems and a more conserv ative approach is also being considered.
[2017-04-17 05:36] LABS: Anion Gap 15 mmol/L (10-20); BUN (Urea Nitrogen) 54 mg/dL (9.8-20.1); Calc. Creatinine Clearance 11 mL/min (70-130); Calcium 7.7 mg/dL (7.8-10.44); Carbon Dioxide 18 mmol/L (23-31); Chloride 104 mmol/L (98-107); Estimated GFR-MDRD 15
[2017-04-17] MEDS: Amiodarone HCl 450 MG in Dextrose 5% in Water 250 ML IVPB SCH ×2 (06:13)
[2017-04-17 06:17] LABS: Acanthocytes SLIGHT = 1-5 cells (100X) (None Seen); Anisocytosis SLIGHT = 6-15 cells (100X) (0-5/hpf); Band 25 % (5-11); Hematocrit 31.4 % (36.0-47.0); Mean Platelet Volume 6.6 fL (7.4-10.4); Myelocyte 1 % (0-0); Neutrophil 56 % (42-75); Polychromasia SLIGHT = 2-3 cells (100X) (0-2/hpf); Red Blood Cell (RBC) Count 3.07 mill/uL (4.20-5.40); White Blood Cell (WBC) Count 12.8 thou/uL (4.8-10.8)
--- NOTE | 2017-04-17 08:25 | PDOC.CTH ---
Cardiology Progress Note - Subjective No new issues. - Objective Vital Signs Temp Pulse Resp BP Pulse Ox 04/17/17 08:00 98.4 F 77 20 131/60 04/17/17 03:32 98.7 F 80 16 128/60 96 04/17/17 00:14 98.5 F 87 16 149/70 H 92 L Admit Weight 107 lb Weight 107 lb 04/16/17 04/17/17 04/18/17 06:59 06:59 06:59 Intake Total 1072 735 Output Total 1 201 Balance 1071 534 - Physical Examination General/Neuro: alert & oriented x3, NAD Neck: no JVD present Lungs: CTA, unlabored respirations Heart: RRR Abdomen: NT/ND Extremities: other: (no edema) - Telemetry Telemetry Rhythm: NSR - Labs Result Diagrams: 04/17/17 04:47 04/17/17 04:47 - Assessment/Plan 1. Paroxysmal Afib, currently in sinus. 2. Small bowel obstruction 3. CKD stage 4 PLAN: - Will switch amio to PO load. - No anticoagulation at this time due to bowel issues. - Aspirin alone for stroke prophylaxis. - If surgery is planned she would be an intermediate risk candidate as she is asymptomatic from a cardiac standpoint and would be able to proceed. It would be prohibitive to do a LHC given her creatinine level and would risk severe kidney damage and dialysis.
[2017-04-17] MEDS: Famotidine/PF 20 mg/2ml Vial SLOW IVP SCH (09:17)
[2017-04-17] MEDS: Aspirin 81 mg Enteric Coated Tablet PO SCH (09:18)
[2017-04-17] MEDS: Heparin 5,000 UNITS/ML VIAL SC SCH ×3 (09:18→20:53)
[2017-04-17] MEDS: metroNIDAZOLE 500 MG in Premix Bag 1 BAG IVPB SCH ×2 (09:19→18:35)
--- NOTE | 2017-04-17 09:25 | PRG ---
DATE OF SERVICE: 04/17/2017 SUBJECTIVE: Ms. Oliveira actually feels better today. The pain in her left upper quadrant is improved. OBJECTIVE: VITAL SIGNS: She is afebrile and her vital signs are stable. ABDOMEN: Soft. She is tender in the left upper quadrant, but no rebound tenderness. ASSESSMENT: Left colon stricture causing obstruction of a long Obed's pouch resulting in fairly significant abdominal pain, although improved. PLAN: I had a long discussion with Ms. Oliveira this morning about options for this. Minimally invasive option would be attempted dilate this area. If she could pass some of this mucus and retained stoo l above, then she probably would have symptom control for a while. If that was not successful, then she would need a surgical procedure. She is only intermediate risk via Dr. Tenorio; however, she wo uld likely require an open procedure that would have significant postop potential morbidity. We chastity l discuss with Dr. Sanford.
--- NOTE | 2017-04-17 10:34 | PRG ---
DATE OF SERVICE: 04/17/2017 SUBJECTIVE: An 86-year-old female being seen for acute kidney injury. The patient denies any nause a, vomiting or chest pain. PHYSICAL EXAMINATION: GENERAL: Patient is awake, alert. VITAL SIGNS: Afebrile, pulse 77, breathing at 16, blood pressure 131/60. OBJECTIVE: See above. Awake, alert, in no acute distress. GENERAL APPEARANCE AND MENTAL STATUS: Fair. HEAD/NECK: Normocephalic. Atraumatic. EYES: EOMI. No deformity. EARS: Clear. No ulcers. NOSE: Intact. No lesions. MOUTH: Clear. No discharge. THROAT: Clear. No exudate. LUNGS: Clear. No crackles. CARDIAC: S1, S2. No rub. ABDOMEN: Benign. BS+. GENITALIA/RECTUM: Varner absent. BACK/EXTREMITIES: Edema 0+ Ulcer- NEUROLOGICAL: Alert and motor intact. SKIN: Rash- Bruise- LYMPHATICS: Edema- Ulcer- LABORATORY: Hemoglobin 10, creatinine 3.0. ASSESSMENT AND RECOMMENDATONS: 1. Chronic kidney disease, stage 4, stable. 2. Hypertension, stable. 3. Hypokalemia. Would recommend high potassium diet. No urgent indication for dialysis.
[2017-04-17] MEDS: Acetaminophen 325 MG TAB PO PRN ×2 (14:29→22:01)
--- NOTE | 2017-04-17 16:13 | PDOC.PN ---
- Subjective Encounter Start Date: 04/17/17 Encounter Start Time: 08:00 Pt seen for followup re: abdo pain. Abdo pain still +, better. No nausea, vomiting or diarrhea. - Objective Resuscitation Status: Resuscitation Status DNR:Do Not Resuscitate MAR Reviewed: Yes Vital Signs & Weight: Vital Signs (12 hours) Temp Pulse Resp BP Pulse Ox 04/17/17 15:40 97.9 F 106 H 24 H 102/53 L 92 L 04/17/17 11:42 98.3 F 81 18 100/57 L 90 L 04/17/17 09:45 98.3 F 81 18 90 L 04/17/17 08:00 98.4 F 77 20 131/60 Weight Admit Weight 107 lb Weight 107 lb I&O: 04/16/17 04/17/17 04/18/17 06:59 06:59 06:59 Intake Total 1072 735 Output Total 1 201 350 Balance 1071 534 -350 Result Diagrams: 04/17/17 04:47 04/17/17 04:47 Additional Labs: Accuchecks 04/17/17 04:59 POC Glucose 97 EKG Reviewed by me: Yes (Tele: NSR) Phys Exam - Physical Examination Constitutional: NAD HEENT: moist MMs, oral pharynx no lesions Neck: supple, full ROM Respiratory: no wheezing, no rales, no rhonchi, clear to auscultation bilateral Cardiovascular: RRR, no rub Gastrointestinal: soft, positive bowel sounds ostomy Musculoskeletal: pulses present Neurological: moves all 4 limbs Psychiatric: normal affect Dx/Plan (1) Abdominal pain Code(s): R10.9 - UNSPECIFIED ABDOMINAL PAIN Status: Acute (2) Afib Code(s): I48.91 - UNSPECIFIED ATRIAL FIBRILLATION Status: Acute (3) Protein calorie malnutrition Code(s): E46 - UNSPECIFIED PROTEIN-CALORIE MALNUTRITION Status: Chronic Qualifiers: Protein-calorie malnutrition severity: mild Qualified Code(s): E44.1 - Mild protein-calorie malnutrition (4) Lupus Code(s): L93.0 - DISCOID LUPUS ERYTHEMATOSUS Status: Chronic (5) CKD (chronic kidney disease) Code(s): N18.9 - CHRONIC KIDNEY DISEASE, UNSPECIFIED Status: Chronic (6) Hypokalemia Code(s): E87.6 - HYPOKALEMIA Status: Resolved - Plan continue antibiotics, out of bed/ambulate, DVT proph w/heparin * . Decision pending re: procedure for bowel stricture. In NSR, changed to oral amio today. Review of Systems - Review of Systems Constitutional: negative: Fever, Chills, Sweats, Weakness, Malaise Cardiovascular: negative: Chest Pain, Palpitations, Orthopnea, Paroxysmal Noc. Dyspnea, Edema, Light Headedness Gastrointestinal: negative: Nausea, Vomiting, Abdominal Pain, Diarrhea, Constipation, Melena, Hematochezia Genitourinary: negative: Dysuria, Frequency, Incontinence, Hematuria, Retention - Medications/Allergies Allergies/Adverse Reactions: Allergies Allergy/AdvReac Type Severity Reaction Status Date / Time trazodone Allergy Mild Verified 04/14/17 04:17 Medications: Current Medications Acetaminophen (Tylenol) 650 mg PO Q6H PRN PRN Reason: Pain Last Admin: 04/17/17 14:29 Dose: 650 mg Amiodarone HCl (Cordarone) 400 mg PO BID [facility] Last Admin: 04/17/17 09:18 Dose: 400 mg Aspirin (Ecotrin) 81 mg PO DAILY [facility] Last Admin: 04/17/17 09:18 Dose: 81 mg Famotidine (Pepcid) 20 mg SLOW IVP Q24HR [facility] Last Admin: 04/17/17 09:17 Dose: 20 mg Heparin Sodium (Porcine) (Heparin) 5,000 units SC TID [facility] Last Admin: 04/17/17 14:27 Dose: 5,000 units Ceftriaxone Sodium 1 gm/ (Sodium Chloride) 100 mls @ 200 mls/hr IVPB Q24HR [facility] Last Admin: 04/16/17 20:29 Dose: 100 mls Metronidazole 500 mg/ Device 100 mls @ 100 mls/hr IVPB 0200,1000,1800 [facility] Last Admin: 04/17/17 09:19 Dose: 100 mls Ondansetron HCl (Zofran) 4 mg IVP Q6H PRN PRN Reason: Nausea/Vomiting Last Admin: 04/14/17 15:18 Dose: 4 mg Sodium Chloride (Flush - Normal Saline) 10 ml IVF Q12HR [facility] Last Admin: 04/17/17 09:19 Dose: 10 ml Sodium Chloride (Flush - Normal Saline) 10 ml IVF PRN PRN PRN Reason: Saline Flush
[2017-04-17] MEDS: cefTRIAXone\\ROCEPHIN 1 GM in Sodium Chloride 0.9% 100 ML IVPB SCH (20:51)
[2017-04-18] MEDS: metroNIDAZOLE 500 MG in Premix Bag 1 BAG IVPB SCH ×2 (01:56→09:24)
--- NOTE | 2017-04-18 05:48 | PRG ---
DATE OF SERVICE: 04/17/2017 SUBJECTIVE: Ms. Oliveira is tolerating a solid diet. She is having improving pain in her left abdomen. 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 OBJECTIVE: VITAL SIGNS: Temperature 97.9, pulse 106, blood pressure 102/53. GENERAL: She is in no acute distress. She is awake and alert. LUNGS: Clear to auscultation bilaterally. CARDIOVASCULAR: Irregular, S1 and S2. ABDOMEN: Soft, tender in the left upper to left lower quadrant without guarding. Her bowel sounds are present. EXTREMITIES: No lower extremity edema. IMPRESSION: Left-sided abdominal pain with constipation and colonic distention of the Obed's po uch. She could have ischemia in this area or diverticulitis or stercoral ulceration or just pain fr om distention and constipation. She has shown improvement with antibiotics. She has a stricture in the distal sigmoid, identified by endoscopy. The rectum was inflamed. The biopsy showed chronic i nactive proctitis, consistent with diversion proctitis. RECOMMENDATIONS: As she is clinically improved, we will continue medical management to complete a course of antibioti cs. I have discussed her case with Dr. Horton. The stricture is quite tight. The stool is hard, rubi-like stool that I did not think it is likely to pass through the strictured area even if dilate d. If balloon dilation were to be performed, then this would likely stricture right back up and donnell n if we were opened at 12 mm with a balloon, the stool is hard and rubi-like and would not pass thro ugh that opening without being mechanically pulled through it. Therefore, endoscopic intervention i s not advised. Ultimately, at this point, if she responds adequately to medical treatment with anti biotics as needed then we can go this route. If she relapses and occurs with ongoing symptoms once antibiotics are discontinued or otherwise, then she most likely would require surgical intervention. Unfortunately, she is a poor surgical candidate and surgery might or might not be possibility base d on her overall clinical status. For now, I would complete a 10-day course of ciprofloxacin and Fl agyl. She can transition to oral antibiotics at any point. I will sign off for now. Please call i f GI can be of assistance.
--- NOTE | 2017-04-18 08:51 | PDOC.CTH ---
Cardiology Progress Note - Subjective She had a BM yesterday, loose. Denies any chest pain. - Objective Vital Signs Temp Pulse Resp BP Pulse Ox 04/18/17 08:00 98.5 F 123 H 24 H 132/63 91 L 04/18/17 05:22 97.8 F 97 16 112/59 L 92 L 04/18/17 01:18 98.2 F 112 H 16 139/71 93 L Admit Weight 107 lb Weight 107 lb 5.842 oz 04/17/17 04/18/17 04/19/17 06:59 06:59 06:59 Intake Total 735 2130 Output Total 201 2450 Balance 534 -320 - Physical Examination General/Neuro: alert & oriented x3, NAD Neck: no JVD present Lungs: unlabored respirations Heart: other: (Irregular) Abdomen: NT/ND Extremities: other: (no edema.) - Telemetry Telemetry Rhythm: NSR ->Afib - Labs Result Diagrams: 04/17/17 04:47 04/17/17 04:47 - Assessment/Plan 1. Paroxysmal Afib, currently in afib rate controlled in the 's. 2. Small bowel obstruction 3. CKD stage 4 PLAN: - Continue amio PO load. - If no surgical intervention is planned will start full anticoagulation for stroke prophylaxis. - Would start Eliquis at 2.5 mg BID before discharge.
[2017-04-18] MEDS: Heparin 5,000 UNITS/ML VIAL SC SCH ×2 (09:25→14:31)
[2017-04-18] MEDS: Aspirin 81 mg Enteric Coated Tablet PO SCH (09:25)
[2017-04-18] MEDS: Famotidine/PF 20 mg/2ml Vial SLOW IVP SCH (09:25)
[2017-04-18] MEDS: Acetaminophen 325 MG TAB PO PRN (09:30)
--- NOTE | 2017-04-18 10:19 | PDOC.PN ---
- Subjective Encounter Start Date: 04/18/17 Encounter Start Time: 07:00 Pt seen for followup re: abdo pain. Reports pain still present. Denies nausea , vomiting, fevers or chills. - Objective Resuscitation Status: Resuscitation Status DNR:Do Not Resuscitate MAR Reviewed: Yes Vital Signs & Weight: Vital Signs (12 hours) Temp Pulse Resp BP Pulse Ox 04/18/17 08:00 98.5 F 123 H 24 H 132/63 91 L 04/18/17 05:22 97.8 F 97 16 112/59 L 92 L 04/18/17 01:18 98.2 F 112 H 16 139/71 93 L Weight Admit Weight 107 lb Weight 107 lb 5.842 oz I&O: 04/17/17 04/18/17 04/19/17 06:59 06:59 06:59 Intake Total 735 2130 Output Total 201 2450 Balance 534 -320 Result Diagrams: 04/17/17 04:47 04/17/17 04:47 EKG Reviewed by me: Yes (Tele: vish santana) Phys Exam - Physical Examination Constitutional: NAD HEENT: sclera anicteric, oral pharynx no lesions Neck: supple Respiratory: no wheezing, no rales, no rhonchi, clear to auscultation bilateral Cardiovascular: RRR, no rub Gastrointestinal: soft, positive bowel sounds Musculoskeletal: pulses present Neurological: moves all 4 limbs Psychiatric: normal affect Skin: no rash Dx/Plan (1) Abdominal pain Code(s): R10.9 - UNSPECIFIED ABDOMINAL PAIN Status: Acute (2) Afib Code(s): I48.91 - UNSPECIFIED ATRIAL FIBRILLATION Status: Acute (3) Protein calorie malnutrition Code(s): E46 - UNSPECIFIED PROTEIN-CALORIE MALNUTRITION Status: Chronic Qualifiers: Protein-calorie malnutrition severity: mild Qualified Code(s): E44.1 - Mild protein-calorie malnutrition (4) Lupus Code(s): L93.0 - DISCOID LUPUS ERYTHEMATOSUS Status: Chronic (5) CKD (chronic kidney disease) Code(s): N18.9 - CHRONIC KIDNEY DISEASE, UNSPECIFIED Status: Chronic (6) Hypokalemia Code(s): E87.6 - HYPOKALEMIA Status: Resolved - Plan continue antibiotics, DVT proph w/heparin * . Appreciate GI and surgical services input. Change abx to oral (cipro, metronidazole). Will start Eliquis close to discharge, once it is clear that there are no plans for surgery. Review of Systems - Medications/Allergies Allergies/Adverse Reactions: Allergies Allergy/AdvReac Type Severity Reaction Status Date / Time trazodone Allergy Mild Verified 04/14/17 04:17 Medications: Current Medications Acetaminophen (Tylenol) 650 mg PO Q6H PRN PRN Reason: Pain Last Admin: 04/18/17 09:30 Dose: 650 mg Amiodarone HCl (Cordarone) 400 mg PO BID [facility] Last Admin: 04/18/17 09:25 Dose: 400 mg Aspirin (Ecotrin) 81 mg PO DAILY [facility] Last Admin: 04/18/17 09:25 Dose: 81 mg Ciprofloxacin (Cipro) 500 mg PO 599,1999 [facility] Famotidine (Pepcid) 20 mg SLOW IVP Q24HR [facility] Last Admin: 04/18/17 09:25 Dose: 20 mg Heparin Sodium (Porcine) (Heparin) 5,000 units SC TID [facility] Last Admin: 04/18/17 09:25 Dose: 5,000 units Metronidazole (Flagyl) 500 mg PO TID [facility] Ondansetron HCl (Zofran) 4 mg IVP Q6H PRN PRN Reason: Nausea/Vomiting Last Admin: 04/14/17 15:18 Dose: 4 mg Sodium Chloride (Flush - Normal Saline) 10 ml IVF Q12HR [facility] Last Admin: 04/18/17 09:26 Dose: 10 ml Sodium Chloride (Flush - Normal Saline) 10 ml IVF PRN PRN PRN Reason: Saline Flush Last Admin: 04/18/17 01:56 Dose: 10 ml
--- NOTE | 2017-04-18 12:08 | PRG ---
DATE OF SERVICE: 04/18/2017 SUBJECTIVE: An 86-year-old female being seen for acute kidney injury. The patient denies any nause a, vomiting or chest pain. PHYSICAL EXAMINATION: GENERAL: Patient is awake, alert. VITAL SIGNS: Afebrile, pulse 97, breathing 16, blood pressure 112/59. OBJECTIVE: See above. Awake, alert, in no acute distress. GENERAL APPEARANCE AND MENTAL STATUS: Fair. HEAD/NECK: Normocephalic. Atraumatic. EYES: EOMI. No deformity. EARS: Clear. No ulcers. NOSE: Intact. No lesions. MOUTH: Clear. No discharge. THROAT: Clear. No exudate. LUNGS: Clear. No crackles. CARDIAC: S1, S2. No rub. ABDOMEN: Benign. BS+. GENITALIA/RECTUM: Varner absent. BACK/EXTREMITIES: Edema 0+ Ulcer- NEUROLOGICAL: Alert and motor intact. SKIN: Rash- Bruise- LYMPHATICS: Edema- Ulcer- LABORATORY: Hemoglobin 10. Creatinine is pending. Labs are pending. ASSESSMENT AND RECOMMENDATIONS: 1. Acute kidney injury with chronic kidney disease, no urgent indication for dialysis. We will rec heck labs today. 2. Metabolic acidosis. We will recheck labs today. 3. Hypertension, stable. 4. Anemia, stable. 5. Medications based on glomerular filtration rate are appropriate. No urgent indication for dialysis. We will follow the patient closely.
[2017-04-18 12:23] LABS: Anion Gap 14 mmol/L (10-20); BUN (Urea Nitrogen) 62 mg/dL (9.8-20.1); Calc. Creatinine Clearance 10 mL/min (70-130); Calcium 7.9 mg/dL (7.8-10.44); Carbon Dioxide 19 mmol/L (23-31); Chloride 106 mmol/L (98-107); Estimated GFR-MDRD 13
[2017-04-18] MEDS: metroNIDAZOLE 500 MG TAB PO SCH ×2 (14:31→20:32)
--- NOTE | 2017-04-18 15:03 | PRG ---
DATE OF SERVICE: 04/18/2017 SUBJECTIVE: Discussed with Dr. Sanford. He does not recommend dilation of the stricture. Any benefi t would only be a very short-term. Patient does feel better, not complaining of as much pain. Abdo amy exam is unchanged. 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 I t hink she is at low risk of perforation given the fact that she is diverted. Unfortunately, she is a t high risk for surgery, not just from a cardiac standpoint; from a wound healing chronic open wound s. Due to the fact that she is feeling better, we will hold off any surgical procedures for now. D iscussed with Dr. Tenorio who would like to start anticoagulation, I think it is safe to do at this p oint with no further surgery or interventions planned by me. We will follow with you.
[2017-04-18 17:53] LABS: Hematocrit 33.4 % (36.0-47.0)
[2017-04-18] MEDS: Ciprofloxacin 500 MG TAB PO SCH (20:31)
[2017-04-18] MEDS: Apixaban 5 MG TAB PO SCH (20:32)
[2017-04-19] MEDS: Ciprofloxacin 500 MG TAB PO SCH ×2 (06:40→20:02)
[2017-04-19] MEDS: metroNIDAZOLE 500 MG TAB PO SCH ×3 (09:56→20:02)
[2017-04-19] MEDS: Apixaban 5 MG TAB PO SCH ×2 (09:56→20:03)
[2017-04-19] MEDS: Aspirin 81 mg Enteric Coated Tablet PO SCH (09:57)
[2017-04-19] MEDS: Famotidine/PF 20 mg/2ml Vial SLOW IVP SCH (09:57)
[2017-04-19 10:19] LABS: Anion Gap 15 mmol/L (10-20); BUN (Urea Nitrogen) 63 mg/dL (9.8-20.1); Calc. Creatinine Clearance 9 mL/min (70-130); Calcium 8.1 mg/dL (7.8-10.44); Carbon Dioxide 15 mmol/L (23-31); Chloride 107 mmol/L (98-107); Estimated GFR-MDRD 13
--- NOTE | 2017-04-19 10:22 | PRG ---
DATE OF SERVICE: 04/19/2017 SUBJECTIVE: An 86-year-old female being seen for CKD. The patient denies any nausea, vomiting or c hest pain. PHYSICAL EXAMINATION: GENERAL: Patient is awake, alert. VITAL SIGNS: Afebrile, pulse 75, breathing at 16, blood pressure 132/61. GENERAL APPEARANCE AND MENTAL STATUS: Fair. HEAD/NECK: Normocephalic. Atraumatic. EYES: EOMI. No deformity. EARS: Clear. No ulcers. NOSE: Intact. No lesions. MOUTH: Clear. No discharge. THROAT: Clear. No exudate. LUNGS: Clear. No crackles. CARDIAC: S1, S2. No rub. ABDOMEN: Benign. BS+. GENITALIA/RECTUM: Varner absent. BACK/EXTREMITIES: Edema 0+ Ulcer- NEUROLOGICAL: Alert and motor intact. SKIN: Rash- Bruise- LYMPHATICS: Edema- Ulcer- LABORATORY DATA: Show hemoglobin 10.3, creatinine is pending. ASSESSMENT AND PLAN: 1. Chronic kidney disease, stage 5. Discussed the risks versus benefits of dialysis. The patient was on dialysis previously and has refused. 2. Hypertension, stable. 3. Anemia, stable. 4. Hypokalemia, stable. No urgent indication for dialysis; however, the patient will be given a ch oice.
--- NOTE | 2017-04-19 13:11 | PDOC.CTH ---
Cardiology Progress Note - Subjective She feels well. No new issues or complaints. Her colostomy is having normal looking stool. - Objective Vital Signs Temp Pulse Resp BP BP Pulse Ox 04/19/17 11:50 98.2 F 82 25 H 137/59 L 96 04/19/17 08:00 97.9 F 77 16 145/65 H 96 04/19/17 03:29 98.4 F 81 24 H 132/61 95 Admit Weight 107 lb Weight 104 lb 4.8 oz 04/18/17 04/19/17 04/20/17 06:59 06:59 06:59 Intake Total 2130 120 Output Total 2450 1196 Balance -320 -1076 - Physical Examination General/Neuro: alert & oriented x3, NAD Neck: no JVD present Lungs: CTA, unlabored respirations Heart: RRR Abdomen: NT/ND Extremities: other: (no edema.) - Telemetry Telemetry Rhythm: NSR - Labs Result Diagrams: 04/18/17 17:45 04/19/17 09:48 - Assessment/Plan 1. Paroxysmal Afib, currently in sinus 2. Small bowel obstruction 3. CKD stage 4 PLAN: - Continue amio PO load 400 mg BID for the next 6 days then switch to 200 mg PO daily. - Tolerating Eliquis at 2.5 mg BID now. - Replace K
[2017-04-19] MEDS ORDERED: Potassium Chloride 20 MEQ TAB PO SCH (16:00)
--- NOTE | 2017-04-19 16:04 | PDOC.PN ---
- Subjective Encounter Start Date: 04/19/17 Encounter Start Time: 11:00 Pt seen for followup re: abdo pain. Says abdo pain better. No nausea or vomiting. No fevers or chills. - Objective Resuscitation Status: Resuscitation Status DNR:Do Not Resuscitate MAR Reviewed: Yes Vital Signs & Weight: Vital Signs (12 hours) Temp Pulse Pulse Pulse Resp BP BP 04/19/17 11:50 98.2 F 82 25 H 04/19/17 11:10 83 91 147/65 H 154/69 H 04/19/17 10:50 83 85 133/60 147/65 H 04/19/17 08:30 98.2 F 82 25 H 04/19/17 08:00 97.9 F 77 16 BP Pulse Ox Pulse Ox Pulse Ox 04/19/17 11:50 137/59 L 96 04/19/17 11:10 95 04/19/17 10:50 96 95 04/19/17 08:30 96 04/19/17 08:00 145/65 H 96 Weight Admit Weight 107 lb Weight 104 lb 4.8 oz I&O: 04/18/17 04/19/17 04/20/17 06:59 06:59 06:59 Intake Total 2130 120 Output Total 2450 1196 Balance -320 -1076 Result Diagrams: 04/18/17 17:45 04/19/17 09:48 EKG Reviewed by me: Yes (Tele: NSR) Phys Exam - Physical Examination Constitutional: NAD HEENT: moist MMs Neck: supple, full ROM Respiratory: no wheezing, no rales, no rhonchi, clear to auscultation bilateral Cardiovascular: RRR, no rub Gastrointestinal: soft, positive bowel sounds ostomy; mild LLQ tenderness, no guarding/rigidity Musculoskeletal: pulses present Neurological: moves all 4 limbs Psychiatric: normal affect Skin: no rash Dx/Plan (1) Abdominal pain Code(s): R10.9 - UNSPECIFIED ABDOMINAL PAIN Status: Acute (2) Afib Code(s): I48.91 - UNSPECIFIED ATRIAL FIBRILLATION Status: Acute (3) Protein calorie malnutrition Code(s): E46 - UNSPECIFIED PROTEIN-CALORIE MALNUTRITION Status: Chronic Qualifiers: Protein-calorie malnutrition severity: mild Qualified Code(s): E44.1 - Mild protein-calorie malnutrition (4) Lupus Code(s): L93.0 - DISCOID LUPUS ERYTHEMATOSUS Status: Chronic (5) CKD (chronic kidney disease) Code(s): N18.9 - CHRONIC KIDNEY DISEASE, UNSPECIFIED Status: Chronic (6) Hypokalemia Code(s): E87.6 - HYPOKALEMIA Status: Resolved - Plan plan discussed w/ family, continue antibiotics, PT/OT, out of bed/ambulate * . Pt on oral antibiotics, continue. Needs mobility evaluation. Discussed with over phone, updated. Review of Systems - Review of Systems Constitutional: negative: Fever, Chills, Sweats, Weakness, Malaise Respiratory: negative: Cough, Dry, Shortness of Breath, Hemoptysis, SOB with Excertion, Pleuritic Pain, Sputum, Wheezing Cardiovascular: negative: Chest Pain, Palpitations, Orthopnea, Paroxysmal Noc. Dyspnea, Edema, Light Headedness Gastrointestinal: Abdominal Pain. negative: Nausea, Vomiting, Diarrhea, Constipation, Melena, Hematochezia - Medications/Allergies Allergies/Adverse Reactions: Allergies Allergy/AdvReac Type Severity Reaction Status Date / Time trazodone Allergy Mild Verified 04/14/17 04:17 Medications: Current Medications Acetaminophen (Tylenol) 650 mg PO Q6H PRN PRN Reason: Pain Last Admin: 04/18/17 09:30 Dose: 650 mg Amiodarone HCl (Cordarone) 400 mg PO BID [facility] Last Admin: 04/19/17 09:56 Dose: 400 mg Apixaban (Eliquis) 2.5 mg PO BID [facility] Last Admin: 04/19/17 09:56 Dose: 2.5 mg Aspirin (Ecotrin) 81 mg PO DAILY [facility] Last Admin: 04/19/17 09:57 Dose: 81 mg Ciprofloxacin (Cipro) 500 mg PO 0600,2000 [facility] Last Admin: 04/19/17 06:40 Dose: 500 mg Famotidine (Pepcid) 20 mg SLOW IVP Q24HR [facility] Last Admin: 04/19/17 09:57 Dose: 20 mg Metronidazole (Flagyl) 500 mg PO TID [facility] Last Admin: 04/19/17 09:56 Dose: 500 mg Ondansetron HCl (Zofran) 4 mg IVP Q6H PRN PRN Reason: Nausea/Vomiting Last Admin: 04/14/17 15:18 Dose: 4 mg Potassium Chloride (K-Dur) 40 meq PO 1600 [facility] Stop: 04/19/17 18:00 Sodium Chloride (Flush - Normal Saline) 10 ml IVF Q12HR [facility] Last Admin: 04/19/17 09:59 Dose: 10 ml Sodium Chloride (Flush - Normal Saline) 10 ml IVF PRN PRN PRN Reason: Saline Flush Last Admin: 04/18/17 01:56 Dose: 10 ml
[2017-04-20] MEDS: Ciprofloxacin 500 MG TAB PO SCH ×2 (05:07→20:21)
[2017-04-20 05:52] LABS: Hematocrit 31.5 % (36.0-47.0)
[2017-04-20] MEDS: Apixaban 5 MG TAB PO SCH ×2 (08:33→20:21)
--- NOTE | 2017-04-20 08:34 | PQF ---
DATE: 04-19-17 ATTN: DR. MAGDALENA PANDYA Please exercise your independent, professional judgment in responding to the clarification form. Clinical indicators are provided on the bottom of this form for your review Please check appropriate box(s): [ x ] Sepsis due to: (Pna, UTI, gangrenous gall bladder, etc.) suspected intraabdominal infection [ ] SIRS due to non-infectious process (please specify etiology) [ ] with organ dysfunction [ ] without organ dysfunction [ ] Severe sepsis with acute organ dysfunction of: (Examples: respiratory failure, encephalopathy, acute kidney failure, other) [ ] Localized infection without sepsis [ ] Other diagnosis [ ] Unable to determine In addition, please specify: Present on Admission (POA): [ ] Yes [ ] No [ ] Unable to determine For continuity of documentation, please document condition throughout progress notes and discharge summary. Thank You. CLINICAL INDICATORS - SIGNS / SYMPTOMS / LABS EVENT NOTE DR. PANDYA 04-16-17: STARTING ANTIBIOTICS FOR POSSIBLE ASPIRATION WBC: 04-14-17: 12.5, 14.5 04-15-17: 13.2 04-16-17: 14.8 04-17-17: 12.8 BANDS: 04-14-17: 17 04-16-17: 28 04-17-17: 25 PULSE: 04-16-17: 103, 119, 108 04-18: 112, 123 RR: 04-15-17: 24 04-17-17: 24 04-18-17: 24, 28 H&P: METABOLIC ACIDOSIS RISK FACTORS: EVENT NOTE DR. PANDYA 04-16-17: STARTING ANTIBIOTICS FOR POSSIBLE ASPIRATION H&P: HX OF COLON MASS, HX OF LUPUS PROCEDURE: 04-15-17: FLEX SIGMOIDOSCOPY WHICH SHOWED SIGMOID DIVERTICULOSIS TREATMENTS: (Sep) RAJNI HSU DAILY CBC (This form is maintained as a part of the permanent medical record) 2014 [place] All Rights Reserved [email or web address] Office: [phone] [facility] HOSPITALAngelica
[2017-04-20] MEDS: metroNIDAZOLE 500 MG TAB PO SCH ×3 (08:35→20:21)
[2017-04-20] MEDS: Aspirin 81 mg Enteric Coated Tablet PO SCH (08:35)
[2017-04-20] MEDS: Famotidine 20 MG TAB PO SCH ×2 (09:26→20:22)
--- NOTE | 2017-04-20 09:36 | PRG ---
DATE OF SERVICE: 04/20/2017 SUBJECTIVE: This is an 86-year-old female, being seen for acute kidney injury. The patient denies any nausea, vomiting, or chest pain. PHYSICAL EXAMINATION: GENERAL: Patient is awake, alert. VITAL SIGNS: Afebrile, pulse 85, breathing at 16, blood pressure 111/64. GENERAL APPEARANCE AND MENTAL STATUS: Fair. HEAD/NECK: Normocephalic. Atraumatic. EYES: EOMI. No deformity. EARS: Clear. No ulcers. NOSE: Intact. No lesions. MOUTH: Clear. No discharge. THROAT: Clear. No exudate. LUNGS: Clear. No crackles. CARDIAC: S1, S2. No rub. ABDOMEN: Benign. BS+. GENITALIA/RECTUM: Varner absent. BACK/EXTREMITIES: Edema 0+ Ulcer- NEUROLOGICAL: Alert and motor intact. SKIN: Rash- Bruise- LYMPHATICS: Edema- Ulcer- LABORATORY DATA: Hemoglobin 9.9, potassium 3.4, creatinine 2.9. ASSESSMENT AND RECOMMENDATIONS: 1. Chronic kidney disease, stage 4, stable. 2. Hypertension, stable. 3. Anemia, stable. 4. No urgent indication for dialysis. 5. Metabolic acidosis. We would recommend starting sodium bicarbonate after potassium has been cor rected.
[2017-04-20 12:35] VITALS: BMI 17.2
--- NOTE | 2017-04-20 13:30 | PDOC.CTH ---
Cardiology Progress Note - Subjective She is doing well. She continues to hve stool out of her colostomy. - Objective Vital Signs Temp Pulse Resp BP Pulse Ox 04/20/17 11:40 98.2 F 82 16 149/67 H 95 04/20/17 08:00 98.5 F 97 21 H 129/68 96 04/20/17 04:00 98.5 F 85 18 111/64 95 Admit Weight 107 lb Weight 103 lb 12.8 oz 04/19/17 04/20/17 04/21/17 06:59 06:59 06:59 Intake Total 120 840 Output Total 1196 900 Balance -1076 -60 - Physical Examination General/Neuro: alert & oriented x3, NAD Neck: no JVD present Lungs: CTA, unlabored respirations Heart: RRR Abdomen: NT/ND Extremities: other: (no edema.) - Telemetry Telemetry Rhythm: NSR - Labs Result Diagrams: 04/20/17 05:12 04/20/17 05:12 - Assessment/Plan 1. Paroxysmal Afib, currently in sinus 2. Small bowel obstruction 3. CKD stage 4 PLAN: - Continue amio PO load 400 mg BID for the next 5 days then switch to 200 mg PO daily. - Tolerating Eliquis at 2.5 mg BID now. - Replace K - Will sign out. Please call with any questions, - She will follow up with Dr. Bernstein her [employer] Operator in 2 -4 weeks.
--- NOTE | 2017-04-20 15:03 | PDOC.PN ---
- Subjective Encounter Start Date: 04/20/17 Encounter Start Time: 09:00 Pt seen for deconditioning. Denies chest pain, fever or chills. No nausea or vomiting. Complains of generalized weakness, SOBOE. - Objective Resuscitation Status: Resuscitation Status DNR:Do Not Resuscitate Vital Signs & Weight: Vital Signs (12 hours) Temp Pulse Resp BP Pulse Ox 04/20/17 11:40 98.2 F 82 16 149/67 H 95 04/20/17 08:00 98.5 F 97 21 H 129/68 96 04/20/17 04:00 98.5 F 85 18 111/64 95 Weight Admit Weight 107 lb Weight 103 lb 12.8 oz I&O: 04/19/17 04/20/17 04/21/17 06:59 06:59 06:59 Intake Total 120 840 Output Total 1196 900 Balance -1076 -60 Result Diagrams: 04/20/17 05:12 04/20/17 05:12 EKG Reviewed by me: Yes (Tele: vish santana) Phys Exam - Physical Examination Constitutional: NAD HEENT: moist MMs, oral pharynx no lesions Neck: supple Respiratory: no wheezing, no rales, no rhonchi, clear to auscultation bilateral S1, s2, irreg Gastrointestinal: soft, positive bowel sounds ostomy+ Neurological: moves all 4 limbs Psychiatric: normal affect Dx/Plan (1) Physical deconditioning Code(s): R53.81 - OTHER MALAISE Status: Acute (2) Abdominal pain Code(s): R10.9 - UNSPECIFIED ABDOMINAL PAIN Status: Acute (3) Afib Code(s): I48.91 - UNSPECIFIED ATRIAL FIBRILLATION Status: Acute (4) Protein calorie malnutrition Code(s): E46 - UNSPECIFIED PROTEIN-CALORIE MALNUTRITION Status: Chronic Qualifiers: Protein-calorie malnutrition severity: mild Qualified Code(s): E44.1 - Mild protein-calorie malnutrition (5) Lupus Code(s): L93.0 - DISCOID LUPUS ERYTHEMATOSUS Status: Chronic (6) CKD (chronic kidney disease) Code(s): N18.9 - CHRONIC KIDNEY DISEASE, UNSPECIFIED Status: Chronic (7) Hypokalemia Code(s): E87.6 - HYPOKALEMIA Status: Resolved (8) Sepsis Code(s): A41.9 - SEPSIS, UNSPECIFIED ORGANISM Status: Resolved Comment: due to suspected intraabdominal infection - Plan continue antibiotics, PT/OT, out of bed/ambulate * . Continue oral antibiotics. Mobilize pt. Will await PT recommendations. Likely home 1-2 days. Review of Systems - Review of Systems Constitutional: Weakness Respiratory: SOB with Excertion. negative: Cough, Dry, Shortness of Breath, Hemoptysis, Pleuritic Pain, Sputum, Wheezing Cardiovascular: negative: Chest Pain, Palpitations, Orthopnea, Paroxysmal Noc. Dyspnea, Edema, Light Headedness - Medications/Allergies Allergies/Adverse Reactions: Allergies Allergy/AdvReac Type Severity Reaction Status Date / Time trazodone Allergy Mild Verified 04/14/17 04:17 Medications: Current Medications Acetaminophen (Tylenol) 650 mg PO Q6H PRN PRN Reason: Pain Last Admin: 04/18/17 09:30 Dose: 650 mg Amiodarone HCl (Cordarone) 400 mg PO BID [facility] Last Admin: 04/20/17 08:33 Dose: 400 mg Apixaban (Eliquis) 2.5 mg PO BID [facility] Last Admin: 04/20/17 08:33 Dose: 2.5 mg Aspirin (Ecotrin) 81 mg PO DAILY [facility] Last Admin: 04/20/17 08:35 Dose: 81 mg Ciprofloxacin (Cipro) 500 mg PO 0600,1999 [facility] Last Admin: 04/20/17 05:07 Dose: 500 mg Famotidine (Pepcid) 20 mg PO Q12H [facility] Last Admin: 04/20/17 09:26 Dose: 20 mg Metronidazole (Flagyl) 500 mg PO TID [facility] Last Admin: 04/20/17 08:35 Dose: 500 mg Ondansetron HCl (Zofran) 4 mg IVP Q6H PRN PRN Reason: Nausea/Vomiting Last Admin: 04/14/17 15:18 Dose: 4 mg Sodium Chloride (Flush - Normal Saline) 10 ml IVF Q12HR [facility] Last Admin: 04/20/17 09:25 Dose: Not Given Sodium Chloride (Flush - Normal Saline) 10 ml IVF PRN PRN PRN Reason: Saline Flush Last Admin: 04/18/17 01:56 Dose: 10 ml
[2017-04-21] MEDS: Ciprofloxacin 500 MG TAB PO SCH ×2 (05:42→20:27)
--- NOTE | 2017-04-21 10:01 | PRG ---
DATE OF SERVICE: 04/21/2017 SUBJECTIVE: An 86-year-old female being seen for acute kidney injury. The patient denies any nause a, vomiting or chest pain. PHYSICAL EXAMINATION: GENERAL: Patient is awake, alert. VITAL SIGNS: Afebrile, pulse 81, breathing at 16, blood pressure 141/66. GENERAL APPEARANCE AND MENTAL STATUS: Fair. HEAD/NECK: Normocephalic. Atraumatic. EYES: EOMI. No deformity. EARS: Clear. No ulcers. NOSE: Intact. No lesions. MOUTH: Clear. No discharge. THROAT: Clear. No exudate. LUNGS: Clear. No crackles. CARDIAC: S1, S2. No rub. ABDOMEN: Benign. BS+. GENITALIA/RECTUM: Varner absent. BACK/EXTREMITIES: Edema 0+ Ulcer- NEUROLOGICAL: Alert and motor intact. SKIN: Rash- Bruise- LYMPHATICS: Edema- Ulcer- LABORATORY DATA: Show creatinine is pending. ASSESSMENT AND PLAN: 1. Stage 5 chronic kidney disease. We will recheck hemoglobin. 2. Acute kidney injury, stable. 3. Hypokalemia. Will recheck potassium. 4. Anemia, stable. No urgent indication for dialysis. We will follow the patient's renal function closely.
[2017-04-21] MEDS: Apixaban 5 MG TAB PO SCH ×2 (10:07→20:27)
[2017-04-21] MEDS: Aspirin 81 mg Enteric Coated Tablet PO SCH (10:07)
[2017-04-21] MEDS: metroNIDAZOLE 500 MG TAB PO SCH ×3 (10:09→20:27)
[2017-04-21] MEDS: Famotidine 20 MG TAB PO SCH ×2 (10:10→20:37)
[2017-04-21 10:39] LABS: Anion Gap 15 mmol/L (10-20); BUN (Urea Nitrogen) 49 mg/dL (9.8-20.1); Calc. Creatinine Clearance 12 mL/min (70-130); Calcium 7.9 mg/dL (7.8-10.44); Carbon Dioxide 17 mmol/L (23-31); Chloride 108 mmol/L (98-107); Estimated GFR-MDRD 18
[2017-04-21] MEDS: Acetaminophen 325 MG TAB PO PRN (12:10)
--- NOTE | 2017-04-21 12:42 | PDOC.PN ---
- Subjective Encounter Start Date: 04/21/17 Encounter Start Time: 08:00 Pt seen for followup re: deconditioning. Reports feeling SOBOE, weak. No chest pain. - Objective Resuscitation Status: Resuscitation Status DNR:Do Not Resuscitate MAR Reviewed: Yes Vital Signs & Weight: Vital Signs (12 hours) Temp Pulse Resp BP Pulse Ox 04/21/17 11:45 95 20 128/69 96 04/21/17 08:02 98.1 F 81 18 141/66 H 95 04/21/17 04:00 98.7 F 76 18 151/67 H 94 L Weight Admit Weight 107 lb Weight 106 lb 6.4 oz I&O: 04/20/17 04/21/17 04/22/17 06:59 06:59 06:59 Intake Total 840 360 Output Total 900 200 Balance -60 160 Result Diagrams: 04/20/17 05:12 04/21/17 10:10 EKG Reviewed by me: Yes (Tele: NSR) Phys Exam - Physical Examination Constitutional: NAD HEENT: moist MMs, oral pharynx no lesions Neck: supple Respiratory: no wheezing, no rales, no rhonchi, clear to auscultation bilateral Cardiovascular: RRR, no rub Gastrointestinal: soft, positive bowel sounds ostomy Musculoskeletal: pulses present Neurological: non-focal, moves all 4 limbs Psychiatric: normal affect Skin: no rash Dx/Plan (1) Physical deconditioning Code(s): R53.81 - OTHER MALAISE Status: Acute (2) Abdominal pain Code(s): R10.9 - UNSPECIFIED ABDOMINAL PAIN Status: Acute (3) Afib Code(s): I48.91 - UNSPECIFIED ATRIAL FIBRILLATION Status: Acute (4) Protein calorie malnutrition Code(s): E46 - UNSPECIFIED PROTEIN-CALORIE MALNUTRITION Status: Chronic Qualifiers: Protein-calorie malnutrition severity: mild Qualified Code(s): E44.1 - Mild protein-calorie malnutrition (5) Lupus Code(s): L93.0 - DISCOID LUPUS ERYTHEMATOSUS Status: Chronic (6) CKD (chronic kidney disease) Code(s): N18.9 - CHRONIC KIDNEY DISEASE, UNSPECIFIED Status: Chronic (7) Hypokalemia Code(s): E87.6 - HYPOKALEMIA Status: Resolved (8) Sepsis Code(s): A41.9 - SEPSIS, UNSPECIFIED ORGANISM Status: Resolved Comment: due to suspected intraabdominal infection - Plan continue antibiotics, PT/OT * . Continue oral antibiotics for total of 10 days. SNU eval. Continue amiodarone as outpt (as advised by Dr. Tenorio). Continue apixaban for a. fib. Review of Systems - Review of Systems Constitutional: Weakness. negative: Fever, Chills, Sweats, Malaise Respiratory: SOB with Excertion. negative: Cough, Dry, Shortness of Breath, Hemoptysis, Pleuritic Pain Cardiovascular: negative: Chest Pain, Palpitations, Orthopnea, Paroxysmal Noc. Dyspnea, Edema, Light Headedness Gastrointestinal: Abdominal Pain - Medications/Allergies Allergies/Adverse Reactions: Allergies Allergy/AdvReac Type Severity Reaction Status Date / Time trazodone Allergy Mild Verified 04/14/17 04:17 Medications: Current Medications Acetaminophen (Tylenol) 650 mg PO Q6H PRN PRN Reason: Pain Last Admin: 04/21/17 12:10 Dose: 650 mg Amiodarone HCl (Cordarone) 400 mg PO BID [facility] Last Admin: 04/21/17 10:08 Dose: 400 mg Apixaban (Eliquis) 2.5 mg PO BID [facility] Last Admin: 04/21/17 10:07 Dose: 2.5 mg Aspirin (Ecotrin) 81 mg PO DAILY [facility] Last Admin: 04/21/17 10:07 Dose: 81 mg Ciprofloxacin (Cipro) 500 mg PO 0600,2000 [facility] Last Admin: 04/21/17 05:42 Dose: 500 mg Famotidine (Pepcid) 20 mg PO Q12H [facility] Last Admin: 04/21/17 10:10 Dose: 20 mg Metronidazole (Flagyl) 500 mg PO TID [facility] Last Admin: 04/21/17 10:09 Dose: 500 mg Ondansetron HCl (Zofran) 4 mg IVP Q6H PRN PRN Reason: Nausea/Vomiting Last Admin: 04/14/17 15:18 Dose: 4 mg Sodium Chloride (Flush - Normal Saline) 10 ml IVF Q12HR [facility] Last Admin: 04/21/17 10:07 Dose: 10 ml Sodium Chloride (Flush - Normal Saline) 10 ml IVF PRN PRN PRN Reason: Saline Flush Last Admin: 04/18/17 01:56 Dose: 10 ml
[2017-04-22] MEDS: Famotidine/PF 20 mg/2ml Vial SLOW IVP SCH (03:49)
[2017-04-22] MEDS: Ciprofloxacin 500 MG TAB PO SCH ×2 (05:34→21:47)
[2017-04-22] MEDS: Apixaban 5 MG TAB PO SCH ×2 (10:16→21:47)
[2017-04-22] MEDS: Aspirin 81 mg Enteric Coated Tablet PO SCH (10:16)
[2017-04-22] MEDS: Famotidine 20 MG TAB PO SCH ×2 (10:16→21:48)
[2017-04-22] MEDS: metroNIDAZOLE 500 MG TAB PO SCH ×3 (10:17→21:47)
--- NOTE | 2017-04-22 10:42 | PRG ---
DATE OF SERVICE: 04/22/2017 SUBJECTIVE: This is an 86-year-old female being seen for stage 5 chronic kidney disease. The patie nt denies any nausea, vomiting or chest pain. PHYSICAL EXAMINATION: GENERAL: Patient is awake, alert. VITAL SIGNS: Afebrile, pulse 74, breathing at 16, blood pressure 146/67. HEAD/NECK: Normocephalic, atraumatic. EYES: EOMI. No deformity. EARS: Clear. No ulcers. NOSE: Intact. No lesions. MOUTH: Clear. No discharge. THROAT: Clear. No exudate. LUNGS: Clear. No crackles. CARDIAC: S1, S2. No rub. ABDOMEN: Benign. BS+. GENITALIA/RECTUM: Varner absent. BACK/EXTREMITIES: Edema 0+ Ulcer-. NEUROLOGICAL: Alert and motor intact. SKIN: Rash- Bruise- LYMPHATICS: Edema- Ulcer-. LABORATORY DATA: Show hemoglobin 9.9, creatinine is 2.5. ASSESSMENT AND RECOMMENDATIONS: 1. Chronic kidney disease stage 4, stable. 2. Hypertension, stable. 3. Acute kidney injury, stable. 4. Metabolic acidosis. Continue sodium bicarbonate. 5. Hypokalemia, stable. No indication for dialysis at this time. The patient will be followed by Dr. Christie.
--- NOTE | 2017-04-22 11:03 | PDOC.PN ---
- Subjective Encounter Start Date: 04/22/17 Encounter Start Time: 11:01 Patient seen and examined - Objective Resuscitation Status: Resuscitation Status DNR:Do Not Resuscitate Vital Signs & Weight: Vital Signs (12 hours) Temp Pulse Resp BP Pulse Ox 04/22/17 08:00 96.4 F L 74 18 154/69 H 97 04/22/17 04:25 98.6 F 71 18 146/67 H 98 04/21/17 23:45 98.1 F 74 18 154/68 H 96 Weight Admit Weight 107 lb Weight 102 lb 14.4 oz I&O: 04/21/17 04/22/17 04/23/17 06:59 06:59 06:59 Intake Total 360 880 Output Total 200 825 Balance 160 55 Result Diagrams: 04/20/17 05:12 04/21/17 10:10 Phys Exam - Physical Examination Constitutional: NAD HEENT: PERRLA, moist MMs Neck: no nodes, no JVD Respiratory: no wheezing, no rales Cardiovascular: RRR, no significant murmur Gastrointestinal: soft, non-tender, no distention ostomy Musculoskeletal: pulses present, edema present (trace) Neurological: non-focal, normal sensation Skin: no rash, normal turgor Dx/Plan (1) Abdominal pain Code(s): R10.9 - UNSPECIFIED ABDOMINAL PAIN Status: Acute (2) Physical deconditioning Code(s): R53.81 - OTHER MALAISE Status: Acute (3) CKD (chronic kidney disease) Code(s): N18.9 - CHRONIC KIDNEY DISEASE, UNSPECIFIED Status: Chronic (4) Lupus Code(s): L93.0 - DISCOID LUPUS ERYTHEMATOSUS Status: Chronic (5) Protein calorie malnutrition Code(s): E46 - UNSPECIFIED PROTEIN-CALORIE MALNUTRITION Status: Chronic Qualifiers: Protein-calorie malnutrition severity: mild Qualified Code(s): E44.1 - Mild protein-calorie malnutrition (6) Afib Code(s): I48.91 - UNSPECIFIED ATRIAL FIBRILLATION Status: Acute - Plan * Continue current management * anticoagulation * abx * SNU evaluation pending * no other changes in plan for now
[2017-04-23] MEDS: Ciprofloxacin 500 MG TAB PO SCH ×2 (06:13→20:31)
[2017-04-23] MEDS: Aspirin 81 mg Enteric Coated Tablet PO SCH (09:31)
[2017-04-23] MEDS: Apixaban 5 MG TAB PO SCH ×2 (09:31→20:32)
[2017-04-23] MEDS: Famotidine 20 MG TAB PO SCH ×2 (09:32→20:32)
[2017-04-23] MEDS: metroNIDAZOLE 500 MG TAB PO SCH ×3 (09:32→20:32)
--- NOTE | 2017-04-23 11:35 | PRG ---
DATE OF SERVICE: 04/23/2017 SUBJECTIVE: Patient was seen and examined at bedside and overnight events noted. Patient denies an y shortness of breath or chest pain or palpitation. No history of nausea or vomiting or diarrhea or fever or chills or cramps. OBJECTIVE: GENERAL: This is a thin built elderly female in no apparent distress. VITAL SIGNS: Temperature 98.1, pulse 75, respirations 18, blood pressure 149/69. HEENT: Atraumatic, normocephalic. Oral mucosa is moist. NECK: Supple. CARDIOVASCULAR: S1 and S2 heard, rate and rhythm regular. RESPIRATORY: Clear to auscultation. GASTROINTESTINAL: Abdomen is soft. MUSCULOSKELETAL: No tenderness, no edema. DERMATOLOGIC: No skin rash. NEUROLOGIC: Alert and awake and oriented X3. No focal neurologic deficits. Moving all the extremi ties. PSYCHIATRIC: Mood and affect normal. LABORATORY DATA: Potassium is 3.9, BUN is 49, and creatinine is 2.5. ASSESSMENT AND PLAN: 1. Acute kidney injury on chronic kidney stage IV. Renal function is much better. Last serum crea tinine was 2.5. 2. Hypertension, stable. 3. Acidosis, chronic. 4. Hypokalemia, replaced. 5. complaints of dysuria today. 6. Dysuria. Check UA with urine culture. 7. Follow with primary team for further evaluation. Patient was advised to follow up in the clinic for chronic kidney disease.
--- NOTE | 2017-04-23 12:56 | PDOC.PN ---
- Subjective Encounter Start Date: 04/23/17 Encounter Start Time: 12:53 c/o pain on urinating no n/v some weakness no f/c eating well - Objective Resuscitation Status: Resuscitation Status DNR:Do Not Resuscitate MAR Reviewed: Yes Vital Signs & Weight: Vital Signs (12 hours) Temp Pulse Resp BP BP Pulse Ox 04/23/17 12:00 98.0 F 75 18 163/72 H 96 04/23/17 08:00 97.6 F 76 18 157/98 H 98 04/23/17 04:15 95 04/23/17 03:50 98.1 F 75 20 149/69 H 95 Weight Admit Weight 107 lb Weight 102 lb 6.4 oz I&O: 04/22/17 04/23/17 04/24/17 06:59 06:59 06:59 Intake Total 880 980 Output Total 825 1100 Balance 55 -120 Result Diagrams: 04/20/17 05:12 04/21/17 10:10 Phys Exam - Physical Examination Constitutional: NAD HEENT: PERRLA Neck: no JVD Respiratory: no wheezing Cardiovascular: no significant murmur Gastrointestinal: soft, non-tender colostomy in place, some suprapubic tenderness Musculoskeletal: pulses present Neurological: normal sensation Dx/Plan (1) Renal failure (ARF), acute on chronic Code(s): N17.9 - ACUTE KIDNEY FAILURE, UNSPECIFIED; N18.9 - CHRONIC KIDNEY DISEASE, UNSPECIFIED Status: Acute (2) Metabolic acidosis Code(s): E87.2 - ACIDOSIS Status: Acute (3) Abdominal pain Code(s): R10.9 - UNSPECIFIED ABDOMINAL PAIN Status: Acute (4) Afib Code(s): I48.91 - UNSPECIFIED ATRIAL FIBRILLATION Status: Acute (5) Physical deconditioning Code(s): R53.81 - OTHER MALAISE Status: Acute (6) Lupus Code(s): L93.0 - DISCOID LUPUS ERYTHEMATOSUS Status: Chronic - Plan * f/u renal plan for caro * f/u urine cul * pt eval and treat * rehab consult * Continue current management * anticoagulation * abx * SNU evaluation pending though pt would like to go home
[2017-04-23 13:14] LABS: Bilirubin Negative (Negative); Blood, Urine Negative (Negative); Glucose, Urine (Dipstick) Negative (Negative); Ketone, Urine Negative (Negative); Nitrite Negative (Negative); Protein, Urine (Dipstick) 30 mg/dL (Neg-Trace); Urobilinogen 0.2 mg/dL (0.2-1.0)
[2017-04-23 13:15] LABS: Bacteria/HPF None Seen HPF (None Seen); Hyaline Casts/LPF 0-3 HYALINE CAST LPF (0-3 Hyaline); WBC/HPF 0-3 HPF (0-3)
[2017-04-23 13:27] LABS: Yeast-All Forms None Seen HPF (None Seen)
[2017-04-23] MEDS: Acetaminophen 325 MG TAB PO PRN (20:40)
[2017-04-24] MEDS: Ciprofloxacin 500 MG TAB PO SCH (05:37)
[2017-04-24 06:19] LABS: #Basophils 0.1 thou/uL (0.0-0.2); #Eosinphils 0.4 thou/uL (0.0-0.7); #Lymphocytes 1.2 thou/uL (1.20-3.40); #Monocytes 1.2 thou/uL (0.11-0.59); #Neutrophils 6.1 thou/uL (1.40-6.50); %Basophils 0.7 % (0.0-1.0); %Eosinophils 4.6 % (0.0-10.0); %Lymphocytes 13.6 % (21.0-51.0); %Monocytes 13.5 % (0.0-10.0); Hematocrit 33.6 % (36.0-47.0); Mean Platelet Volume 6.6 fL (7.4-10.4); Red Blood Cell (RBC) Count 3.24 mill/uL (4.20-5.40); White Blood Cell (WBC) Count 9.1 thou/uL (4.8-10.8)
[2017-04-24 06:37] LABS: Anion Gap 15 mmol/L (10-20); BUN (Urea Nitrogen) 45 mg/dL (9.8-20.1); BUN/Creatinine Ratio 18.07; Calc. Creatinine Clearance 12 mL/min (70-130); Calcium 8.3 mg/dL (7.8-10.44); Carbon Dioxide 11 mmol/L (23-31); Chloride 111 mmol/L (98-107); Estimated GFR-MDRD 18; Phosphorus 3.2 mg/dL (2.3-4.7)
[2017-04-24] MEDS: metroNIDAZOLE 500 MG TAB PO SCH (08:10)
[2017-04-24] MEDS: Aspirin 81 mg Enteric Coated Tablet PO SCH (08:10)
[2017-04-24] MEDS: Famotidine 20 MG TAB PO SCH (08:10)
[2017-04-24] MEDS: Apixaban 5 MG TAB PO SCH (08:10)
--- NOTE | 2017-04-24 09:06 | PRG ---
DATE OF SERVICE: 04/24/2017 SUBJECTIVE: Patient was seen and examined at bedside and overnight events noted. Patient denies an y shortness of breath or chest pain or palpitation. No history of nausea or vomiting or diarrhea or fever or chills or cramps. OBJECTIVE: GENERAL: This is an elderly female in no apparent distress. VITAL SIGNS: Temperature 97.8, pulse 80, respiratory rate 18, and blood pressure 147/67. HEENT: Atraumatic, normocephalic. Oral mucosa is moist. NECK: Supple. CARDIOVASCULAR: S1 and S2 heard, rate and rhythm regular. RESPIRATORY: Clear to auscultation. GASTROINTESTINAL: Abdomen is soft. MUSCULOSKELETAL: No tenderness, no edema. DERMATOLOGIC: No skin rash. NEUROLOGIC: Alert and awake and oriented X3. No focal neurologic deficits. Moving all the extremi ties. PSYCHIATRIC: Mood and affect normal. LABORATORY DATA: Potassium is 4.8, BUN is 14.5, creatinine is 2.1. ASSESSMENT AND PLAN: 1. Acute kidney injury on chronic kidney disease stage 4. Renal function is much better. Avoid ne phrotoxins. 2. Dysuria. Urine culture is negative so far. 3. Hypertension, stable. 4. Acidosis. 5. Hypokalemia, replaced and better. Overall, renal function is better. Avoid nephrotoxins. We will follow.
[2017-04-24 11:43] VITALS: TEMP 98.5
[2017-04-24 11:45] VITALS: BP 170/74
--- NOTE | 2017-04-24 12:14 | PDOC.PN ---
- Subjective Encounter Start Date: 04/24/17 Encounter Start Time: 12:12 Patient seen and examined. No new complaints. No overnight events - Objective Resuscitation Status: Resuscitation Status DNR:Do Not Resuscitate MAR Reviewed: Yes Vital Signs & Weight: Vital Signs (12 hours) Temp Pulse Pulse Pulse Resp BP BP 04/24/17 11:42 98.5 F 73 14 04/24/17 10:10 77 74 170/74 H 158/70 H 04/24/17 08:05 97.8 F 80 18 04/24/17 08:00 97.8 F 80 18 04/24/17 03:16 98.3 F 77 18 BP Pulse Ox 04/24/17 11:42 174/76 H 97 04/24/17 10:10 04/24/17 08:05 147/67 H 96 04/24/17 08:00 99 04/24/17 03:16 147/69 H 98 Weight Admit Weight 107 lb Weight 101 lb 8 oz I&O: 04/23/17 04/24/17 04/25/17 06:59 06:59 06:59 Intake Total 980 1140 Output Total 1100 500 Balance -120 640 Result Diagrams: 04/24/17 05:57 04/24/17 05:57 Phys Exam - Physical Examination Constitutional: NAD HEENT: PERRLA Neck: no JVD Respiratory: no wheezing Cardiovascular: no significant murmur Gastrointestinal: non-tender Musculoskeletal: pulses present Neurological: moves all 4 limbs Psychiatric: A&O x 3 Skin: normal turgor Deviation from normal: dime shaped area of erythema on lt forearm Dx/Plan (1) Renal failure (ARF), acute on chronic Code(s): N17.9 - ACUTE KIDNEY FAILURE, UNSPECIFIED; N18.9 - CHRONIC KIDNEY DISEASE, UNSPECIFIED Status: Acute Comment: better out pt f/u with renal (2) Metabolic acidosis Code(s): E87.2 - ACIDOSIS Status: Acute (3) Abdominal pain Code(s): R10.9 - UNSPECIFIED ABDOMINAL PAIN Status: Acute (4) Afib Code(s): I48.91 - UNSPECIFIED ATRIAL FIBRILLATION Status: Acute Comment: on eliquis (5) Physical deconditioning Code(s): R53.81 - OTHER MALAISE Status: Acute (6) Lupus Code(s): L93.0 - DISCOID LUPUS ERYTHEMATOSUS Status: Chronic (7) Cellulitis Code(s): L03.90 - CELLULITIS, UNSPECIFIED Status: Acute Qualifiers: Site of cellulitis: extremity Site of cellulitis of extremity: upper extremity Laterality: left Qualified Code(s): L03.114 - Cellulitis of left upper limb - Plan * doing good * d/c home with out pt f/u with pcp,renal and card
--- NOTE | 2017-04-24 13:13 | DIS ---
DATE OF ADMISSION: 04/14/2017 DATE OF DISCHARGE: 04/24/2017 DIAGNOSES ON DISCHARGE: A small-bowel obstruction resolved, acute on chronic renal failure, better. Outpatient followup with Nephrology. Metabolic acidosis, better; abdominal pain resolved, chronic atrial fibrillation on Eliquis, physical deconditioning to be discharged with home health, history of lupus, history of small area of cellulitis on the left forearm to be discharged on doxycycline. Patient has a history of colostomy. DISCHARGE MEDICATIONS: Include Norvasc 5 mg p.o. daily, doxycycline 100 mg p.o. b.i.d. for 7 days, aspirin 81 mg p.o. daily, Eliquis 2.5 p.o. b.i.d., amiodarone 200 mg p.o. daily. Outpatient followu ps with Renal, Cardiology, and PCP. Patient's consultants on the case were Cardiology and Nephrolog y and GI and Surgery. BRIEF HOSPITAL COURSE: This is an 86-year-old pleasant lady who came into the hospital with abdomin al pain. Please refer to the admitting physician's H\T\P for further details. Patient's CT scan of the abdomen done at the ER showed marked distention and wall thickening and inflammatory changes. GI and General Surgery were consulted. IV antibiotics were started. Patient improved with symptoma tic treatment. Patient had a flexible sigmoidoscopy done by Dr. Sanford, which showed normal ileum mu cosa, circumferential erythema and superficial ulceration and friability of the rectum and distal si gmoid consistent with diversion colitis, inflammatory bowel disease. They recommended continuation of IV antibiotics. Dr. Horton evaluated the patient and decided conservative treatment for the dis lester sigmoid strictures. Patient improved with conservative management, the other issue on this hosp ital stay was acute on chronic kidney failure. Dr. Mark Christie was consulted. He thought that the acute kidney injury on chronic kidney disease was probably secondary to poor outflow. He recomm ended supportive treatment with IV fluids. He also treated the acidosis with bicarbonate drip and a lso followed up with the patient. Patient improved with this kidney function. I spoke to him today and he said that he will follow up with the patient. He is satisfied with the improving kidney fun ctions and he will follow up with patient as an outpatient. The patient was also seen by Dr. Tenorio , he evaluated the patient for the atrial fibrillation, put patient on amiodarone and then optimized the dose, right now patient is doing good on 200 mg p.o. daily, Eliquis for anticoagulation. Patie nt is doing much better with this as well. Patient colostomy is working well. She is no longer hav ing nausea, vomiting, abdominal pain, urine cultures done twice this hospital stay showed no infecti on. She also complained of some small area in the left forearm where possibly she had an IV over th e area of erythema and cellulitis. She was advised to put ice and compression dressings on it and w ill be discharged on some doxycycline. She is asked to follow up with PCP and Renal in 1 week and w ith her nurse rn bsn in 2 weeks. She understands all this. Because of the physical deconditioning, home health was arranged. She is going to go home. She refused SNF and Rehab. At the day of , she walked about 100 yards. She wants to go home and take care of her and home healt h has been arranged. She has been asked to come back to the emergency room in case symptoms recur. Total time for this discharge took 35 minutes.
== END 2017-04-24 13:55 | disposition home health service (06) | DRG 388 ==
LOC: ERS 23:43 → 2SE 04-14 02:00 → 2NO 04-19 07:40
PROVIDERS: ADMIT Internal Medicine; ATTEND Internal Medicine
PROC: 0DBN8ZX Excision of Sigmoid Colon, Via Natural or Artificial Opening Endoscopic, Diagnostic (ICD-10-PCS; principal; 2017-04-15)
DX: K56.609 Unspecified intestinal obstruction, unspecified as to partial versus complete obstruction (principal); A41.9 Sepsis, unspecified organism; E87.2 Acidosis; N18.4 Chronic kidney disease, stage 4 (severe); N17.9 Acute kidney failure, unspecified; I48.0 Paroxysmal atrial fibrillation; E44.1 Mild protein-calorie malnutrition; K62.6 Ulcer of anus and rectum; L03.114 Cellulitis of left upper limb; Z68.1 Body mass index [BMI] 19.9 or less, adult; I48.2 Chronic atrial fibrillation; I12.9 Hypertensive chronic kidney disease with stage 1 through stage 4 chronic kidney disease, or unspecified chronic kidney disease; D63.8 Anemia in other chronic diseases classified elsewhere; K57.30 Diverticulosis of large intestine without perforation or abscess without bleeding; K63.89 Other specified diseases of intestine; K56.699 Other intestinal obstruction unspecified as to partial versus complete obstruction; K59.00 Constipation, unspecified; L93.0 Discoid lupus erythematosus; K52.9 Noninfective gastroenteritis and colitis, unspecified; D72.829 Elevated white blood cell count, unspecified; E87.6 Hypokalemia; R30.0 Dysuria; Z95.0 Presence of cardiac pacemaker; Z93.2 Ileostomy status; Z88.2 Allergy status to sulfonamides; Z88.8 Allergy status to other drugs, medicaments and biological substances; Z82.49 Family history of ischemic heart disease and other diseases of the circulatory system; Z80.0 Family history of malignant neoplasm of digestive organs
CPT/HCPCS: 36415; 36416; 71010; 74250; 80048; 80069; 80076; 81003; 81015; 82565; 82570; 83735; 84156; 84443; 85014; 85018; 85025; 85049; 87086; 88305; 93005; 93010; 93306; A4216; A4353; G8978-GP-CL; G8979-GP-CJ; G8987-GO-CK; G8988-GO-CI; J0282; J0696; J0744; J1644; J2405; J3480; J7050; J7070; S0028